=== PATIENT | male | born 1985 | race Caucasian/White ===

== ENCOUNTER → 2018-10-01 | Outpatient (CLI) | payer OTHER ==
[2018-10-01 10:45] LABS: Basophils # (A) 0.1 k/uL (0-0.2); Basophils % (A) 1 %; Eosinophils # (A) 0.3 k/uL (0-0.7); Eosinophils % (A) 3 %; HCT 44.8 % (39.0-53.0); HGB 15.6 gm/dL (13.0-17.5); Lymphocytes # (A) 1.7 k/uL (1.0-4.8); Lymphocytes % (A) 20 %; MCH 31.7 pg (25.0-35.0); MCHC 34.9 g/dL (31.0-37.0); Mean Platelet Volume 7.4; Monocytes # (A) 0.6 k/uL (0-1.0); Monocytes % (A) 7 %; Neutrophils # (A) 5.7 k/uL (1.3-7.7); Neutrophils % (A) 68 %; Platelet Count 220 k/uL (150-450); RBC 4.93 m/uL (4.30-5.90); RDW 12.6 % (11.5-15.5); WBC 8.4 k/uL (3.8-10.6)
[2018-10-01 12:28] LABS: Erythrocyte Sedimentation Rate 2 mm/hr (0-15)
--- NOTE | 2018-10-01 13:03 | XR ---
Right shoulder HISTORY: Juvenile rheumatoid arthritis 3 views of the right shoulder Bone mineralization, joint spaces and alignment are maintained. No fracture or dislocation. Right flaquita g apex as visualized. IMPRESSION: Normal right shoulder.
--- NOTE | 2018-10-01 13:05 | XR ---
Bilateral hands HISTORY: Juvenile rheumatoid arthritis 3 views of each hand submitted on a total of 6 images No comparisons Bone mineralization, joint spaces and alignment are maintained. No fracture or dislocation. IMPRESSION: Significant arthropathy is not evident.
--- NOTE | 2018-10-01 13:06 | XR ---
Sacrum and coccyx HISTORY: Juvenile Rheumatoid arthritis 3 views of the sacrum and coccyx Bone mineralization, joint spaces and alignment are maintained. No fracture or dislocation. Metallic densities scattered within the abdomen may be related to bowel content, radiopaque medication. IMPRESSION: No significant arthropathy evident. Additional findings above.
--- NOTE | 2018-10-01 13:09 | XR ---
Lumbar spine HISTORY: Juvenile Rheumatoid arthritis 3 views of the lumbar spine Lumbar vertebral bodies show preserved height, alignment, and bone mineralization. Scattered punctate metallic densities are noted within the abdomen likely represent bowel content. Disc spaces are main tained. Sclerosis present in the posterior elements of the lower lumbar spine may be due to facet art hropathy. Mild multilevel spondylosis. IMPRESSION: Mild lumbar spondylosis, possible facet arthropathy. Additional findings above. Lumbar MR I may be of benefit.
[2018-10-01 16:24] LABS: Albumin 4.6 g/dL (3.80-4.90); Albumin/Globulin Ratio 2.88 (1.20-2.10); Anion Gap 2.6 mmol/L (4.00-12.00); Calcium 9.1 mg/dL (8.7-10.3); Carbon Dioxide 24.4 mmol/L (21.6-31.8); Globulin 1.6 g/dL (2.1-3.7); Potassium 4.2 mmol/L (3.5-5.5); Total Bilirubin 0.4 mg/dL (0.2-1.2); Total Protein 6.2 g/dL (6.2-8.2)
== END | disposition home or self-care (01) ==
LOC: LABWHC1 09:39
PROVIDERS: ATTEND Internal Medicine
DX: M08.00 Unspecified juvenile rheumatoid arthritis of unspecified site (principal)
CPT/HCPCS: 36415; 72100; 72220; 80053; 85025; 85652

== ENCOUNTER 2018-10-15 13:22 | Emergency (ER) | payer OTHER ==
[2018-10-15 13:27] VITALS: RESP 16
--- NOTE | 2018-10-15 14:29 | XR ---
EXAMINATION TYPE: XR knee complete LT DATE OF EXAM: 10/15/2018 COMPARISON: NONE HISTORY: 33-year-old male twisting type injury to left knee, pain TECHNIQUE: 3 views FINDINGS: No significant knee joint effusion. No acute fracture, subluxation, or dislocation seen. Extensor mec hanism appears intact. IMPRESSION: No acute osseous abnormality seen.
[2018-10-15] MEDS ORDERED: ACETAMINOPHEN TAB 325 MG TAB PO STA (14:32)
--- NOTE | 2018-10-15 14:36 | ED ---
Lower Extremity Injury HPI - General Chief Complaint: Extremity Injury, Lower Stated Complaint: Knee injury Time Seen by Provider: 10/15/18 14:19 Source: patient Mode of arrival: ambulatory Limitations: no limitations - History of Present Illness Initial Comments: 33yo male who denies significant PMH presenting today for cc of left knee pain. pt states that yesterday evening he was moving a washing machine around 8pm when he turned with the machine and twisted his left knee. He states he did not dislocate the knee but noticed pain. He denies fall or injury to any other extremity or head. Pt states that he is able to weight bear following the injury but felt like his knee could give out. Pt was concerned of injury and presented for evaluation, pt denies any numbness, tingling, loss of sensation, pallor/cooler of extremity. Upon arrival pt is ambulatory, he appears well. No signs of acute distress. Pt denies taking medication prior to arrival. Remainder of ROS (-), pt denies chest pain, dypnea, abdominal pain, nausea, vomiting, urgency, frequency, fever, chills, headache, dizziness or any other recent symptoms. BP elevated upon arrival. - Related Data Home Medications Medication Instructions Recorded Confirmed ALPRAZolam [Xanax] 1 mg PO BID PRN 04/20/15 10/15/18 Ibuprofen [Motrin] 800 mg PO BID 04/20/15 10/15/18 Allergies Allergy/AdvReac Type Severity Reaction Status Date / Time latex Allergy Rash/Hives Verified 10/15/18 13:27 Review of Systems ROS Statement: Those systems with pertinent positive or pertinent negative responses have been documented in the HPI. ROS Other: All systems not noted in ROS Statement are negative. Past Medical History Past Medical History: Memory Impairment, Rheumatoid Arthritis (RA), Seizure Disorder Additional Past Medical History / Comment(s): KIDNEY STONES, UTI, ULCERS History of Any Multi-Drug Resistant Organisms: None Reported Additional Past Surgical History / Comment(s): left shoulder, right wrist Past Anesthesia/Blood Transfusion Reactions: No Reported Reaction Past Psychological History: Anxiety, Depression Smoking Status: Current every day smoker Past Alcohol Use History: None Reported Past Drug Use History: Heroin - Past Family History Mother Family Medical History: Hypertension, Myocardial Infarction ([place]) Additional Family Medical History / Comment(s): MS Father History Unknown: Yes General Exam - General Exam Comments Initial Comments: General: The patient is awake and alert, in no distress, and does not appear acutely ill. Eye: Pupils are equal, round and reactive to light, extra-ocular movements are intact. No nystagmus. There is normal conjunctiva bilaterally. No signs of icterus. Ears, nose, mouth and throat: There are moist mucous membranes and no oral lesions. Neck: The neck is supple, there is no tenderness or JVD. Cardiovascular: There is a regular rate and rhythm. No murmur, rub or gallop is appreciated. Respiratory: Lungs are clear to auscultation, respirations are non-labored, breath sounds are equal. No wheezes, stridor, rales, or rhonchi.] Musculoskeletal: Inspection of the left knee reveals swelling along the lateral aspect-mild, no ecchymosis. No obvious defect. Extensor mechanism intact , No bogginess of the quadracepts tendon. Pt is able to flex and extend at the knee b/l. Pt does admit to discomfort with ROM of the left knee-this does not appear out of proportion. Pt is tender to palpation of the lateral aspect and posterior aspect of the knee. No noted masses or obvious effusions. Strength 5/ 5. Sensation intact of the LE equally b/l. DP pulses equal bilaterally 2+. Capillary refill < 2 seconds. No noted laxity on exam. Neurological: A&O x 3. CN II-XII intact, There are no obvious motor or sensory deficits. Coordination appears grossly intact. Speech is normal. Skin: Skin is warm and dry and no rashes or lesions are noted. Psychiatric: Cooperative, appropriate mood & affect, normal judgment. Limitations: no limitations Course Vital Signs 10/15/18 10/15/18 13:25 15:33 Temperature 97.9 F 98.1 F Pulse Rate 83 81 Respiratory 16 16 Rate Blood Pressure 167/97 158/90 O2 Sat by Pulse 99 99 Oximetry Medical Decision Making - Medical Decision Making Pt given pain mgmt. PE and history concerning for ligamentous injury. Extensor mechanisms intact. Pt neurovascularly intact. XR (-) for fracture or dislocation. Pt placed in knee immobilizer, pt states he has crutches at home. At this time i feel pt is stable for discharge with orthopedic surgery followup in next 1-2 days for evaluation for possible ligamentous injury. Pt is agreeable with plan. Pt given CRISTINA instruction as well as instruction to take ibuprofen and tylenol for pain mgmt at home. Case discussed with Dr. Martinez who agreed with impression and plan. Pt discharged in stable condition after discussing all return parameters, pt verbalized understanding. Pt BP elevated upon discharge, pt aware. Recommended primary f/u in next 1-2 days for further management/evaluation. ROS (-). Disposition Clinical Impression: Left knee injury, Left knee pain Disposition: HOME SELF-CARE Condition: Good Instructions: Knee Sprain (ED), Knee Pain (ED) Additional Instructions: Please use over the counter pain medication as discussed. Please follow-up with orthopedic surgery in the next 1-2 days, for evaluation for possible ligamentous injury. Please keep knee immobilizer on when walking/moving. Please return to emergency room if new symptoms develop there is an increase or worsen of symptoms or for any other concerns. Is patient prescribed a controlled substance at d/c from ED?: No Referrals: Maximo Lima DO [Primary Care Provider] - 1-2 days Javi Bermudez MD [STAFF PHYSICIAN] - 1-2 days Time of Disposition: 15:17
[2018-10-15] MEDS ORDERED: MORPHINE SULFATE 2 MG/ML SYRINGE IM STA (14:46)
[2018-10-15 15:34] VITALS: BP 158/90; PULSE 81; TEMP 98.1
== END 2018-10-15 15:33 | disposition home or self-care (01) ==
LOC: EC 13:22
DX: S89.92XA Unspecified injury of left lower leg, initial encounter (principal); F41.9 Anxiety disorder, unspecified; F32.9 Major depressive disorder, single episode, unspecified; F17.200 Nicotine dependence, unspecified, uncomplicated; Z79.899 Other long term (current) drug therapy; Z91.040 Latex allergy status; X50.1XXA Overexertion from prolonged static or awkward postures, initial encounter; Y92.009 Unspecified place in unspecified non-institutional (private) residence as the place of occurrence of the external cause
CPT/HCPCS: 73562; 99283; 96372; L1830; J2270

== ENCOUNTER → 2018-11-30 | Outpatient (CLI) | payer OTHER ==
--- NOTE | 2018-11-30 09:24 | CT ---
EXAMINATION TYPE: CT abdomen pelvis wo con DATE OF EXAM: 11/30/2018 COMPARISON: June 29, 2011 HISTORY: Left flank and LLQ pain with hematuria CT DLP: 1053 mGycm Examination of the solid and hollow viscera is limited given the lack of contrast. FINDINGS: LUNG BASES: No evidence for nodule. No evidence for infiltrate. LIVER/GB: The gallbladder is unremarkable. No space-occupying hepatic lesion. PANCREAS: No pancreatic mass identified. No inflammatory process seen. SPLEEN: No evidence for splenomegaly. No intrasplenic lesions seen. ADRENALS: No adrenal nodules identified. No evidence for thickening. KIDNEYS: No evidence for renal mass. Nonobstructing calculi upper pole right kidney measuring up to 3 mm. No evidence for left-sided nephrolithiasis. No hydronephrosis. BOWEL: Appendix has a normal appearance. No evidence of bowel obstruction. No inflammatory process. Lymph nodes: No evidence for adenopathy greater than 1 cm. Abdominal aorta: Atheromatous changes seen. No evidence for aneurysm. Genital organs: No significant abnormality. Other: No significant abnormality. IMPRESSION: 1. Nonobstructing right-sided nephrolithiasis.
== END | disposition home or self-care (01) ==
LOC: RADCTMAIN 07:48
PROVIDERS: ATTEND Family Medicine
DX: N20.0 Calculus of kidney (principal)
CPT/HCPCS: 74176

== ENCOUNTER → 2019-01-07 | Outpatient (CLI) | payer OTHER ==
[2019-01-07 13:00] LABS: Prothrombin Time 10.3 sec (9.0-12.0)
[2019-01-07 18:41] LABS: Albumin 4.4 g/dL (3.80-4.90); Albumin/Globulin Ratio 2.44 (1.60-3.17); Bilirubin, Conjugated 0.3 mg/dL (0.20-0.40); Bilirubin,Unconjugated 0.5 mg/dL; Globulin 1.8 g/dL (1.6-3.3); Total Bilirubin 0.8 mg/dL (0.2-1.2); Total Protein 6.2 g/dL (6.2-8.2)
[2019-01-09 15:04] LABS: HCV Quant Log 5.78 (<1.08)
== END | disposition home or self-care (01) ==
LOC: LABWHC1 11:57
PROVIDERS: ATTEND Physician Assistant
DX: B18.2 Chronic viral hepatitis C (principal)
CPT/HCPCS: 36415; 80076; 85610; 87522

== ENCOUNTER 2019-04-16 13:14 | Emergency (ER) | payer OTHER ==
[2019-04-16 13:21] VITALS: TEMP 97.6
[2019-04-16] MEDS ORDERED: KETOROLAC 30 MG/ML 1 ML VIAL IVP STA (13:31)
[2019-04-16] MEDS ORDERED: SODIUM CHLORIDE 0.9% 1,000 ML IV STA (13:32)
--- NOTE | 2019-04-16 13:54 | ED ---
Abdominal Pain HPI - General Chief Complaint: Abdominal Pain Stated Complaint: Flank Pain Time Seen by Provider: 04/16/19 13:30 Source: patient, EMS Mode of arrival: EMS Limitations: no limitations - History of Present Illness Initial Comments: Patient is a 33-year-old male presenting to the emergency department via EMS with complaints of severe right-sided abdominal/flank pain 40 minutes. Patient admits to history of kidney stones and this feels similar. Patient states pain started suddenly and has been very severe. Patient is hollering out in pain and sweating at time of arrival. Patient denies any other complaints at this time. Patient denies fever, chills, nausea, vomiting, diarrhea. - Related Data Home Medications Medication Instructions Recorded Confirmed Ibuprofen [Motrin] 800 mg PO TID PRN 04/20/15 04/16/19 Previous Rx's Medication Instructions Recorded HYDROcodone/APAP 7.5-325MG [[place] 1 tab PO Q6HR PRN 3 Days #12 tab 04/16/19 7.5-325] Ketorolac [Toradol] 10 mg PO Q8HR #15 tab 04/16/19 Ondansetron Odt [Zofran Odt] 4 mg PO Q8HR PRN #10 tab 04/16/19 Tamsulosin [Flomax] 0.4 mg PO DAILY #7 cap 04/16/19 Allergies Allergy/AdvReac Type Severity Reaction Status Date / Time latex Allergy Rash/Hives Verified 04/16/19 13:51 Review of Systems ROS Statement: Those systems with pertinent positive or pertinent negative responses have been documented in the HPI. ROS Other: All systems not noted in ROS Statement are negative. Past Medical History Past Medical History: Memory Impairment, Rheumatoid Arthritis (RA), Seizure Disorder Additional Past Medical History / Comment(s): KIDNEY STONES, UTI, ULCERS History of Any Multi-Drug Resistant Organisms: None Reported Additional Past Surgical History / Comment(s): left shoulder, right wrist Past Anesthesia/Blood Transfusion Reactions: No Reported Reaction Past Psychological History: Anxiety, Depression Smoking Status: Current every day smoker Past Alcohol Use History: None Reported Past Drug Use History: Heroin, Marijuana - Past Family History Mother Family Medical History: Hypertension, Myocardial Infarction ([place]) Additional Family Medical History / Comment(s): MS Father History Unknown: Yes General Exam - General Exam Comments Initial Comments: GENERAL: Patient is hollering in pain, diaphoretic. HEAD: Atraumatic, normocephalic. EYES: Pupils equal round and reactive to light, extraocular movements intact, sclera anicteric, conjunctiva are normal. ENT: TMs normal, nares patent, oropharynx clear without exudates. Moist mucous membranes. NECK: Normal range of motion, supple without lymphadenopathy or JVD. LUNGS: Breath sounds clear to auscultation bilaterally and equal. No wheezes rales or rhonchi. HEART: Regular rate and rhythm without murmurs, rubs or gallops. ABDOMEN: Soft, nontender, normoactive bowel sounds. No guarding, no rebound. No masses appreciated. Bilateral CVA tenderness, right greater than left. EXTREMITIES: Normal range of motion, no pitting or edema. No clubbing or cyanosis. NEUROLOGICAL: Cranial nerves II through XII grossly intact. Normal speech, normal gait. PSYCH: Normal mood, normal affect. SKIN: Warm, normal turgor, no rashes or lesions noted. Limitations: no limitations Course Vital Signs 04/16/19 04/16/19 04/16/19 13:16 16:00 17:43 Temperature 97.6 F 97.6 F Pulse Rate 62 55 L 65 Respiratory 20 18 18 Rate Blood Pressure 191/105 161/91 137/80 O2 Sat by Pulse 100 100 99 Oximetry Medical Decision Making - Medical Decision Making Patient is a 33-year-old male presenting to the ER via EMS for severe right- sided CVA tenderness 40 minutes. Patient admits to history of kidney stones and this feels similar. Patient is hollering in pain and diaphoretic on arrival. Exam reveals right CVA tenderness and mild left-sided tenderness as well. CBC shows mild leukocytosis with WBC of 15, likely reactive. CMP is within normal limits. UA shows no signs of infection and moderate amount of blood. Abdominal CT shows cacli in both kidneys. There is a distal right ureteral calculus measuring 2 mm with associated right-sided hydronephrosis and hydroureter. Patient was given Toradol and Dilaudid with improvement in pain. Patient will be discharged home with pain medication, Flomax, Zofran. Patient is okay with this plan. Case was discussed with Dr. Martinez. - Lab Data Result diagrams: 04/16/19 13:50 04/16/19 13:50 Lab Results 04/16/19 04/16/19 04/16/19 Range/Units 13:50 13:50 13:50 WBC 15.2 H (3.8-10.6) k/uL RBC 4.94 (4.30-5.90) m/uL Hgb 14.8 (13.0-17.5) gm/dL Hct 44.6 (39.0-53.0) % MCV 90.4 (80.0-100.0) fL MCH 29.9 (25.0-35.0) pg MCHC 33.1 (31.0-37.0) g/dL RDW 13.7 (11.5-15.5) % Plt Count 230 (150-450) k/uL Neutrophils % 85 % Lymphocytes % 9 % Monocytes % 4 % Eosinophils % 1 % Basophils % 1 % Neutrophils # 12.8 H (1.3-7.7) k/uL Lymphocytes # 1.4 (1.0-4.8) k/uL Monocytes # 0.6 (0-1.0) k/uL Eosinophils # 0.1 (0-0.7) k/uL Basophils # 0.1 (0-0.2) k/uL Sodium 141 (137-145) mmol/L Potassium 3.7 (3.5-5.1) mmol/L Chloride 109 H (98-107) mmol/L Carbon Dioxide 21 L (22-30) mmol/L Anion Gap 11 mmol/L BUN 12 (9-20) mg/dL Creatinine 0.69 (0.66-1.25) mg/dL Est GFR (CKD-EPI)AfAm >90 (>60 ml/min/1.73 sqM) Est GFR (CKD-EPI)NonAf >90 (>60 ml/min/1.73 sqM) Glucose 136 H (74-99) mg/dL Calcium 9.5 (8.4-10.2) mg/dL Total Bilirubin 1.0 (0.2-1.3) mg/dL AST 54 (17-59) U/L ALT 44 (21-72) U/L Alkaline Phosphatase 76 (38-126) U/L Total Protein 7.0 (6.3-8.2) g/dL Albumin 4.5 (3.5-5.0) g/dL Urine Color Yellow Urine Appearance Clear (Clear) Urine pH 6.5 (5.0-8.0) Ur Specific [place] 1.018 (1.001-1.035) Urine Protein Trace H (Negative) Urine Glucose (UA) Negative (Negative) Urine Ketones 2+ H (Negative) Urine Blood Moderate H (Negative) Urine Nitrite Negative (Negative) Urine Bilirubin Negative (Negative) Urine Urobilinogen <2.0 (<2.0) mg/dL Ur Leukocyte Esterase Negative (Negative) Urine RBC >182 H (0-5) /hpf Urine WBC 3 (0-5) /hpf Ur Squamous Epith Cells <1 (0-4) /hpf Urine Mucus Few H (None) /hpf Disposition Clinical Impression: Right ureteral stone, Right flank pain Disposition: HOME SELF-CARE Condition: Stable Instructions (If sedation given, give patient instructions): Kidney Stones (ED) Additional Instructions: Please return to the Emergency Department if symptoms worsen or any other concerns. Follow-up with PCP if symptoms continue. Prescriptions: Tamsulosin [Flomax] 0.4 mg PO DAILY #7 cap HYDROcodone/APAP 7.5-325MG [[place] 7.5-325] 1 tab PO Q6HR PRN 3 Days #12 tab PRN Reason: Pain Ketorolac [Toradol] 10 mg PO Q8HR #15 tab Ondansetron Odt [Zofran Odt] 4 mg PO Q8HR PRN #10 tab PRN Reason: Nausea Is patient prescribed a controlled substance at d/c from ED?: Yes When asked, does pt state using other controlled substances?: No If prescribed controlled substance>3 days was MAPS reviewed?: Prescribed <3 Days If opioid is for acute pain is fill amount 7 days or less?: Yes If Rx opioid, was Start Talking consent form obtained?: Yes Referrals: Maximo Lima DO [Primary Care Provider] - 1-2 days
[2019-04-16] MEDS ORDERED: HYDROmorphone 1 MG/ML 1 ML SYRINGE IVP STA ×2 (13:59→16:20)
[2019-04-16 14:13] LABS: ALT 44 U/L (21-72); AST 54 U/L (17-59); African American GFR (CKD) >90 (>60 ml/min/1.73 sqM); Albumin 4.5 g/dL (3.5-5.0); Alkaline Phosphatase 76 U/L (38-126); Anion Gap 11 mmol/L; Blood Urea Nitrogen 12 mg/dL (9-20); Calcium 9.5 mg/dL (8.4-10.2); Carbon Dioxide 21 mmol/L (22-30); Chloride 109 mmol/L (98-107); Glucose 136 mg/dL (74-99); Sodium 141 mmol/L (137-145)
[2019-04-16 14:18] LABS: Basophils # (A) 0.1 k/uL (0-0.2); Basophils % (A) 1 %; Eosinophils # (A) 0.1 k/uL (0-0.7); Eosinophils % (A) 1 %; HCT 44.6 % (39.0-53.0); HGB 14.8 gm/dL (13.0-17.5); Lymphocytes # (A) 1.4 k/uL (1.0-4.8); Lymphocytes % (A) 9 %; MCH 29.9 pg (25.0-35.0); MCHC 33.1 g/dL (31.0-37.0); MCV 90.4 fL (80.0-100.0); Mean Platelet Volume 8.1; Monocytes # (A) 0.6 k/uL (0-1.0); Monocytes % (A) 4 %; Neutrophils # (A) 12.8 k/uL (1.3-7.7); Neutrophils % (A) 85 %; Platelet Count 230 k/uL (150-450); RBC 4.94 m/uL (4.30-5.90); RDW 13.7 % (11.5-15.5); WBC 15.2 k/uL (3.8-10.6)
[2019-04-16 14:19] LABS: Potassium 3.7 mmol/L (3.5-5.1)
--- NOTE | 2019-04-16 14:23 | CT ---
EXAMINATION TYPE: CT abdomen pelvis wo con DATE OF EXAM: 04/16/2019 COMPARISON: Prior CT 11/30/2018 HISTORY: Right flank pain. CT DLP: 1483.6 mGycm Automated exposure control for dose reduction was used. TECHNIQUE: Helical acquisition of images from the lung bases through the pelvis. FINDINGS: LUNG BASES: No significant abnormality is appreciated. AORTA: No significant abnormality is appreciated. LIVER/GB: The liver is enlarged, gallbladder shows no stone. PANCREAS: No significant abnormality is seen. SPLEEN: No significant abnormality is seen. ADRENALS: No significant abnormality is seen. KIDNEYS: Punctate nonobstructive calculi are present within both kidneys, at least 4-5 calcifications on the right and on the left. There is right-sided hydronephrosis and hydroureter. Distal right uret eral calculus is present measuring only approximately 2 mm in size. REPRODUCTIVE ORGANS: No significant abnormality is seen. URINARY BLADDER: No significant abnormality is seen. BOWEL: No significant abnormality is seen. The appendix is normal. There is some luminal high attenu ation however the appendix is not thickened and shows no periappendiceal inflammatory change. Some di verticular change noted in the sigmoid colon and descending colon, transverse colon FREE AIR: No Beltran e Air is visible. ASCITES: None visible. PELVIC ADENOPATHY: None visualized. RETROPERITONEAL ADENOPATHY: No Retroperitoneal Adenopathy visible. OSSEOUS STRUCTURES: No significant abnormality is seen. IMPRESSION: OBSTRUCTIVE DISTAL RIGHT URETERAL CALCULUS. BILATERAL NEPHROLITHIASIS. NONCONTRAST EXAM COULD LIMIT S ENSITIVITY. DIVERTICULOSIS AND ADDITIONAL FINDINGS ABOVE.
[2019-04-16 14:36] LABS: Appearance,Urine Clear (Clear); Bilirubin,Urine Negative (Negative); Blood,Urine Moderate (Negative); Color,Urine Yellow; Glucose,Urine (UA) Negative (Negative); Ketones,Urine 2+ (Negative); Leukocyte Esterase,Urine Negative (Negative); Mucus,Urine Few /hpf; Nitrite,Urine Negative (Negative); PH, Urine 6.5 (5.0-8.0); Protein,Urine Trace (Negative); RBC,Urine >182 /hpf (0-5); Specific Gravity,Urine 1.018 (1.001-1.035); Squamous Epithelial Cell,Urine <1 /hpf (0-4); Urobilinogen,Urine <2.0 mg/dL (<2.0)
[2019-04-16] MEDS ORDERED: TAMSULOSIN 0.4 MG CAP.ER.24H PO STA (14:37)
--- NOTE | 2019-04-16 15:50 | XR ---
EXAMINATION TYPE: XR KUB DATE OF EXAM: 04/16/2019 COMPARISON: NONE HISTORY: Right flank pain TECHNIQUE: One view abdominal series FINDINGS: The osseous structures are intact. The bowel gas pattern is nonspecific. No suspicious calcification s. Hypertrophic change of the acetabulum may predispose the patient to femoral acetabular impingement . IMPRESSION: 1. Nonspecific abdomen.
[2019-04-16 16:02] VITALS: RESP 18
[2019-04-16 17:48] VITALS: BP 137/80; PULSE 65
== END 2019-04-16 17:48 | disposition home or self-care (01) ==
LOC: EC 13:14
DX: N13.2 Hydronephrosis with renal and ureteral calculous obstruction (principal); D72.829 Elevated white blood cell count, unspecified; R61 Generalized hyperhidrosis; F17.200 Nicotine dependence, unspecified, uncomplicated; Z91.040 Latex allergy status
CPT/HCPCS: 36415; 80053; 85025; 81001; 74018; 74176; 99285; 96374; 96375; 96376; 96361 ×2; J1885; J1170

== ENCOUNTER → 2019-06-13 | Outpatient (CLI) | payer OTHER ==
--- NOTE | 2019-06-13 17:54 | ECHOF ---
Referral Reason:R94.31 Abnormal EKG MEASUREMENTS -------- HEIGHT: 165.1 cm WEIGHT: 93.0 kg BP: 132/72 IVSd: 1.1 cm (0.6 - 1.1) LVIDd: 5.2 cm (3.9 - 5.3) LVPWd: 1.0 cm (0.6 - 1.1) IVSs: 1.6 cm LVIDs: 3.2 cm LVPWs: 1.5 cm LA Diam: 3.3 cm (2.7 - 3.8) RVIDd: 3.0 cm (< 3.3) LAESV Index (A-L): 24.32 ml/m Ao Diam: 3.3 cm (2.0 - 3.7) AV Cusp: 2.6 cm (1.5 - 2.6) EPSS: 0.3 cm MV E Kenny: 0.82 m/s MV DecT: 276 ms MV A Kenny: 0.80 m/s MV E/A Ratio: 1.03 MV EF SLOPE: 99.50 mm/s (70 - 150) MV EXCURSION: 18.52 mm (> 18.000) FINDINGS -------- Sinus rhythm. This was a technically good study. The left ventricular size is normal. Left ventricular wall thickness is normal. Overall left vent ricular systolic function is normal with, an EF between 60 - 65 %. The right ventricle is normal in size. Normal LA size by volume 22+/-6 ml/m2. The right atrium is normal in size. Interatrial and interventricular septum intact. The aortic valve is trileaflet and appears structurally normal. The mitral valve leaflets are mildly thickened. The tricuspid valve appears structurally normal. Trace/mild (physiologic) pulmonic regurgitation. The aortic root size is normal. Normal inferior vena cava with normal inspiratory collapse consistent with estimated right atrial pre ssure of 5 mmHg. There is no pericardial effusion. CONCLUSIONS -------- 1. Sinus rhythm. 2. This was a technically good study. 3. The left ventricular size is normal. 4. Left ventricular wall thickness is normal. 5. Overall left ventricular systolic function is normal with, an EF between 60 - 65 %. 6. The right ventricle is normal in size. 7. Normal LA size by volume 22+/-6 ml/m2. 8. The right atrium is normal in size. 9. Interatrial and interventricular septum intact. 10. The aortic valve is trileaflet and appears structurally normal. 11. The mitral valve leaflets are mildly thickened. 12. The tricuspid valve appears structurally normal. 13. Trace/mild (physiologic) pulmonic regurgitation. 14. The aortic root size is normal. 15. Normal inferior vena cava with normal inspiratory collapse consistent with estimated right atrial pressure of 5 mmHg. 16. There is no pericardial effusion. MANAGER ENGLISH: Tabitha Mcneal RDCS
== END | disposition home or self-care (01) ==
LOC: RADECHMAIN 11:15
PROVIDERS: ATTEND Family Medicine
DX: I37.1 Nonrheumatic pulmonary valve insufficiency (principal)
CPT/HCPCS: 93306

== ENCOUNTER 2019-07-18 02:55 | Emergency (ER) | payer OTHER ==
[2019-07-18] MEDS ORDERED: SODIUM CHLORIDE 0.9% 1,000 ML IV STA (03:26)
[2019-07-18] MEDS ORDERED: HYDROmorphone 0.5 MG/0.5 ML SYRINGE IVP STA (03:26)
[2019-07-18] MEDS ORDERED: KETOROLAC 30 MG/ML 1 ML VIAL IVP STA (03:26)
[2019-07-18] MEDS ORDERED: ONDANSETRON 4 MG/2 ML VIAL IVP STA (03:26)
[2019-07-18 03:39] LABS: Basophils # (A) 0.1 k/uL (0-0.2); Basophils % (A) 1 %; Eosinophils # (A) 0.4 k/uL (0-0.7); Eosinophils % (A) 4 %; HCT 44.4 % (39.0-53.0); HGB 14.7 gm/dL (13.0-17.5); Lymphocytes # (A) 2.4 k/uL (1.0-4.8); Lymphocytes % (A) 24 %; MCH 30.1 pg (25.0-35.0); MCHC 33.2 g/dL (31.0-37.0); MCV 90.7 fL (80.0-100.0); Mean Platelet Volume 7.6; Monocytes # (A) 0.6 k/uL (0-1.0); Monocytes % (A) 6 %; Neutrophils # (A) 6.4 k/uL (1.3-7.7); Neutrophils % (A) 62 %; Platelet Count 224 k/uL (150-450); RBC 4.89 m/uL (4.30-5.90); RDW 12.6 % (11.5-15.5); WBC 10.2 k/uL (3.8-10.6)
--- NOTE | 2019-07-18 03:43 | XR ---
EXAMINATION TYPE: XR KUB DATE OF EXAM: 07/18/2019 COMPARISON: 04/16/2019 HISTORY: Abdominal pain TECHNIQUE: 2 views upright FINDINGS: There is no sign of intestinal obstruction or pneumoperitoneum. Fecal pattern is normal. Th ere are no pathologic calcifications over the right kidney. There is possible 2 mm calculus over the left kidney. IMPRESSION: Nonacute abdomen. No adverse change.
--- NOTE | 2019-07-18 03:44 | ED ---
Abdominal Pain HPI - General Chief Complaint: Abdominal Pain Stated Complaint: Abdominal Pain Time Seen by Provider: 07/18/19 03:07 Source: patient, EMS Mode of arrival: EMS Limitations: no limitations - History of Present Illness Initial Comments: 34 year-old male patient presents to the emergency department today for evaluation of left sided abdominal pain. Patient states he is having a sharp, stabbing, burning pain to the left flank radiating into the left lower quadrant abdomen. Patient states this started approximately one hour ago. Patient s tates he did have similar symptoms in the past and had a kidney stone on the right side. Patient states he has been nauseated and did vomit one time. Denies any fevers or chills with this. States he has noticed blood in his urine. Denies any constipation or diarrhea. Denies history of abdominal surgery. He is not currently taking any medications. Patient denies any recent rash, shortness breath, chest pain, diarrhea, constipation, back pain, numbness, tingling, dizziness, weakness, headache, visual changes, or any other complaints. - Related Data Home Medications Medication Instructions Recorded Confirmed Ibuprofen [Motrin] 800 mg PO TID PRN 04/20/15 04/16/19 Previous Rx's Medication Instructions Recorded HYDROcodone/APAP 7.5-325MG [[place] 1 tab PO Q6HR PRN 3 Days #12 tab 04/16/19 7.5-325] Ketorolac [Toradol] 10 mg PO Q8HR #15 tab 04/16/19 Ondansetron Odt [Zofran Odt] 4 mg PO Q8HR PRN #10 tab 04/16/19 Tamsulosin [Flomax] 0.4 mg PO DAILY #7 cap 04/16/19 Ibuprofen [Motrin] 600 mg PO Q8HR PRN #30 tab 07/18/19 Ondansetron [Zofran ODT] 4 mg PO Q8HR PRN #20 tab 07/18/19 Tamsulosin HCl [Flomax] 0.4 mg PO DAILY #7 cap 07/18/19 Allergies Allergy/AdvReac Type Severity Reaction Status Date / Time latex Allergy Rash/Hives Verified 07/18/19 03:09 Review of Systems ROS Statement: Those systems with pertinent positive or pertinent negative responses have been documented in the HPI. ROS Other: All systems not noted in ROS Statement are negative. Past Medical History Past Medical History: Memory Impairment, Rheumatoid Arthritis (RA), Seizure Disorder Additional Past Medical History / Comment(s): KIDNEY STONES, UTI, ULCERS History of Any Multi-Drug Resistant Organisms: None Reported Additional Past Surgical History / Comment(s): left shoulder, right wrist Past Anesthesia/Blood Transfusion Reactions: No Reported Reaction Past Psychological History: Anxiety, Depression Smoking Status: Current every day smoker Past Alcohol Use History: None Reported Past Drug Use History: Heroin, Marijuana - Past Family History Mother Family Medical History: Hypertension, Myocardial Infarction ([place]) Additional Family Medical History / Comment(s): MS Father History Unknown: Yes General Exam Limitations: no limitations General appearance: alert, in no apparent distress, other (This is a well- developed, well-nourished adult male patient in no acute distress. Vital signs upon presentation are temperature 97.0F, pulse 60, respirations 18, blood pressure 153/110, pulse ox 99% on room air.) Eye exam: Present: normal appearance, PERRL, EOMI. Absent: scleral icterus, conjunctival injection, periorbital swelling ENT exam: Present: normal exam, normal oropharynx, mucous membranes moist Respiratory exam: Present: normal lung sounds bilaterally. Absent: respiratory distress, wheezes, rales, rhonchi, stridor Cardiovascular Exam: Present: regular rate, normal rhythm, normal heart sounds. Absent: systolic murmur, diastolic murmur, rubs, gallop, clicks GI/Abdominal exam: Present: soft, tenderness (Left lower quadrant tenderness), normal bowel sounds. Absent: distended, guarding, rebound, rigid Neurological exam: Present: alert, oriented X3, CN II-XII intact Psychiatric exam: Present: normal affect, normal mood Skin exam: Present: warm, dry, intact, normal color. Absent: rash Course Vital Signs 07/18/19 07/18/19 03:06 03:15 Temperature 97 F L Pulse Rate 60 Respiratory 18 Rate Blood Pressure 153/110 158/95 O2 Sat by Pulse 99 Oximetry Medical Decision Making - Lab Data Result diagrams: 07/18/19 03:10 07/18/19 03:10 Lab Results 07/18/19 07/18/19 07/18/19 Range/Units 03:10 03:10 03:10 WBC 10.2 (3.8-10.6) k/uL RBC 4.89 (4.30-5.90) m/uL Hgb 14.7 (13.0-17.5) gm/dL Hct 44.4 (39.0-53.0) % MCV 90.7 (80.0-100.0) fL MCH 30.1 (25.0-35.0) pg MCHC 33.2 (31.0-37.0) g/dL RDW 12.6 (11.5-15.5) % Plt Count 224 (150-450) k/uL Neutrophils % 62 % Lymphocytes % 24 % Monocytes % 6 % Eosinophils % 4 % Basophils % 1 % Neutrophils # 6.4 (1.3-7.7) k/uL Lymphocytes # 2.4 (1.0-4.8) k/uL Monocytes # 0.6 (0-1.0) k/uL Eosinophils # 0.4 (0-0.7) k/uL Basophils # 0.1 (0-0.2) k/uL Sodium 141 (137-145) mmol/L Potassium 3.7 (3.5-5.1) mmol/L Chloride 108 H (98-107) mmol/L Carbon Dioxide 25 (22-30) mmol/L Anion Gap 8 mmol/L BUN 13 (9-20) mg/dL Creatinine 0.63 L (0.66-1.25) mg/dL Est GFR (CKD-EPI)AfAm >90 (>60 ml/min/1.73 sqM) Est GFR (CKD-EPI)NonAf >90 (>60 ml/min/1.73 sqM) Glucose 108 H (74-99) mg/dL Calcium 8.9 (8.4-10.2) mg/dL Total Bilirubin 0.4 (0.2-1.3) mg/dL AST 34 (17-59) U/L ALT 34 (21-72) U/L Alkaline Phosphatase 88 (38-126) U/L Total Protein 6.6 (6.3-8.2) g/dL Albumin 4.1 (3.5-5.0) g/dL Amylase 86 (30-110) U/L Lipase 278 (23-300) U/L Urine Color Yellow Urine Appearance Clear (Clear) Urine pH 7.0 (5.0-8.0) Ur Specific [place] 1.015 (1.001-1.035) Urine Protein Negative (Negative) Urine Glucose (UA) Negative (Negative) Urine Ketones Negative (Negative) Urine Blood Large H (Negative) Urine Nitrite Negative (Negative) Urine Bilirubin Negative (Negative) Urine Urobilinogen <2.0 (<2.0) mg/dL Ur Leukocyte Esterase Negative (Negative) Urine RBC >182 H (0-5) /hpf Urine WBC 21 H (0-5) /hpf Hyaline Casts 3 H (0-2) /lpf Urine Mucus Rare H (None) /hpf Disposition Clinical Impression: Kidney stone on left side Disposition: HOME SELF-CARE Condition: Good Instructions (If sedation given, give patient instructions): Kidney Stones (ED) Additional Instructions: Increase fluids. Take medication as directed. Return to the emergency department for any new, worsening, or concerning symptoms. Prescriptions: Tamsulosin HCl [Flomax] 0.4 mg PO DAILY #7 cap Ibuprofen [Motrin] 600 mg PO Q8HR PRN #30 tab PRN Reason: Pain Ondansetron [Zofran ODT] 4 mg PO Q8HR PRN #20 tab PRN Reason: Nausea Is patient prescribed a controlled substance at d/c from ED?: No Referrals: Maximo Lima DO [Primary Care Provider] - 1-2 days Eric Ceron MD [STAFF PHYSICIAN] - 1-2 days
[2019-07-18 03:55] LABS: ALT 34 U/L (21-72); AST 34 U/L (17-59); African American GFR (CKD) >90 (>60 ml/min/1.73 sqM); Albumin 4.1 g/dL (3.5-5.0); Alkaline Phosphatase 88 U/L (38-126); Amylase 86 U/L (30-110); Anion Gap 8 mmol/L; Blood Urea Nitrogen 13 mg/dL (9-20); Calcium 8.9 mg/dL (8.4-10.2); Carbon Dioxide 25 mmol/L (22-30); Chloride 108 mmol/L (98-107); Glucose 108 mg/dL (74-99); Potassium 3.7 mmol/L (3.5-5.1); Sodium 141 mmol/L (137-145); Total Bilirubin 0.4 mg/dL (0.2-1.3); Total Protein 6.6 g/dL (6.3-8.2)
[2019-07-18 03:56] LABS: Appearance,Urine Clear (Clear); Bilirubin,Urine Negative (Negative); Blood,Urine Large (Negative); Color,Urine Yellow; Glucose,Urine (UA) Negative (Negative); Hyaline Casts,Urine 3 /lpf (0-2); Ketones,Urine Negative (Negative); Leukocyte Esterase,Urine Negative (Negative); Mucus,Urine Rare /hpf; Nitrite,Urine Negative (Negative); Protein,Urine Negative (Negative); RBC,Urine >182 /hpf (0-5); Specific Gravity,Urine 1.015 (1.001-1.035); Urobilinogen,Urine <2.0 mg/dL (<2.0); WBC,Urine 21 /hpf (0-5)
[2019-07-18] MEDS ORDERED: ONDANSETRON 4 MG ODT STARTER PACK 2 TAB BTL PO STA (03:58)
[2019-07-18] MEDS ORDERED: IBUPROFEN 600 MG STARTER PACK 4 TAB BTL PO STA (03:58)
[2019-07-18] MEDS ORDERED: TAMSULOSIN 0.4 MG CAP.ER.24H PO STA (03:58)
[2019-07-18] MEDS ORDERED: ACET/COD 300 MG/30 MG STARTER PACK 6 TAB BTL PO STA (03:58)
[2019-07-18] MEDS ORDERED: MORPHINE SULFATE 4 MG/ML SYRINGE IV STA (04:44)
[2019-07-18 05:58] VITALS: BP 130/62; PULSE 80; RESP 17; TEMP 98.1
== END 2019-07-18 05:58 | disposition home or self-care (01) ==
LOC: EC 02:55
DX: N20.0 Calculus of kidney (principal); M06.9 Rheumatoid arthritis, unspecified; F17.200 Nicotine dependence, unspecified, uncomplicated; Z87.440 Personal history of urinary (tract) infections; Z79.1 Long term (current) use of non-steroidal anti-inflammatories (NSAID); Z91.040 Latex allergy status
CPT/HCPCS: 36415; 74018; 80053; 81001; 82150; 83690; 85025; 96361; 96374; 96375; 99285

== ENCOUNTER 2019-07-29 19:36 | Emergency (ER) | payer OTHER ==
[2019-07-29 20:02] VITALS: RESP 20; TEMP 98.1
[2019-07-29] MEDS ORDERED: ONDANSETRON 4 MG/2 ML VIAL IVP STA (20:57)
[2019-07-29] MEDS ORDERED: MORPHINE SULFATE 4 MG/ML SYRINGE IV STA (20:57)
[2019-07-29] MEDS ORDERED: SODIUM CHLORIDE 0.9% 1,000 ML IV STA (20:57)
--- NOTE | 2019-07-29 20:57 | ED ---
General Adult HPI - General Chief complaint: Abdominal Pain Stated complaint: Post Op Abd Pain & Fever Time Seen by Provider: 07/29/19 20:34 Source: patient, RN notes reviewed, old records reviewed Mode of arrival: ambulatory Limitations: no limitations - History of Present Illness Initial comments: 34-year-old male patient past medical history significant for rheumatoid arthritis presents to ED chief complaint postoperative pain. Patient reports that this morning he had an outpatient surgical procedure cystoscopy, renal calculi removal. Patient reports that since discharge she has had pain in his right flank region. Reports nausea and vomiting. Patient states that he has been given Motrin 800 suture did not help the pain. Patient also reports that he has been feeling cold. Denies any other complaints at this time. Systemic: Pt denies fatigue, fever/chills, rash. Pt denies weakness, night sweats, weight loss. Neuro: Pt denies headache, visual disturbances, syncope or pre-syncope. HEENT: Pt denies ocular discharge or irritation, otalgia, rhinorrhea, pharyngitis or notable lymphadenopathy. Cardiopulmonary: Pt denies chest pain, SOB, heart palpitations, dyspnea on exertion. Abdominal/GI: Pt denies diarrhea. : Pt denies dysuria, burning w/ urination, frequency/urgency. Denies new onset urinary or bowel incontinence. MSK: Pt denies myalgia, loss of strength or function in extremities. Neuro: Pt denies new onset weakness, paresthesias. - Related Data Previous Rx's Medication Instructions Recorded Ibuprofen [Motrin] 600 mg PO Q8HR PRN #30 tab 07/18/19 Ondansetron [Zofran ODT] 4 mg PO Q8HR PRN #20 tab 07/18/19 Tamsulosin HCl [Flomax] 0.4 mg PO DAILY #7 cap 07/18/19 Cephalexin [Keflex] 500 mg PO Q12HR 7 Days #14 cap 07/29/19 Tamsulosin [Flomax] 0.4 mg PO DAILY #10 cap 07/29/19 Allergies Allergy/AdvReac Type Severity Reaction Status Date / Time adhesive tape Allergy Rash/Hives Verified 07/29/19 20:42 Review of Systems ROS Statement: Those systems with pertinent positive or pertinent negative responses have been documented in the HPI. ROS Other: All systems not noted in ROS Statement are negative. Past Medical History Past Medical History: Memory Impairment, Rheumatoid Arthritis (RA), Seizure Disorder Additional Past Medical History / Comment(s): KIDNEY STONES, UTI, ULCERS, previous IVDA History of Any Multi-Drug Resistant Organisms: None Reported Additional Past Surgical History / Comment(s): left shoulder, right wrist, bladder scope Past Anesthesia/Blood Transfusion Reactions: No Reported Reaction Past Psychological History: Anxiety, Depression Smoking Status: Current every day smoker Past Alcohol Use History: None Reported Past Drug Use History: Marijuana - Past Family History Mother Family Medical History: Hypertension, Myocardial Infarction ([place]) Additional Family Medical History / Comment(s): MS Father History Unknown: Yes General Exam - General Exam Comments Initial Comments: Constitutional: NAD, AOX3, Pt has pleasant affect. HEENT: NC/AT, trachea midline, neck supple, no lymphadenopathy. Posterior pharynx non erythematous, without exudates. External ears appear normal, without discharge. Mucous membranes moist. Eyes PERRLA, EOM intact. There is no scleral icterus. No pallor noted. Cardiopulmonary: RRR, no murmurs, rubs or gallops, no JVD noted. Lungs CTAB in anterior and posterior briceno. No peripheral edema. Abdominal exam: Abdomen soft and non-distended. Abdomen non-tender to palpation in all 4 quadrants. Bowel sounds active in LLQ. No hepatosplenomegaly. No ecchymosis. Right CVA tenderness noted. Neuro: CN II-XII grossly intact. No nuchal rigidity. No raccon eyes, no corona sign, no hemotympanum. No cervical spinal tenderness. MSK: No posterior calf tenderness bilaterally, homans sign negative bilaterally. Posterior tibialis and radial pulse +2 bilaterally. Sensation intact in upper and lower extremities. Full active ROM in upper and lower extremities, 5/5 str egnth. Limitations: no limitations Course Vital Signs 07/29/19 19:58 Temperature 98.1 F Pulse Rate 50 L Respiratory 20 Rate Blood Pressure 180/76 O2 Sat by Pulse 100 Oximetry Medical Decision Making - Medical Decision Making 34-year-old male patient past medical history significant for rheumatoid arthritis presents to ED chief complaint postoperative pain. Patient reports that this morning he had an outpatient surgical procedure cystoscopy, renal calculi removal. Patient reports that since discharge she has had pain in his right flank region. Reports nausea and vomiting. Patient states that he has been given Motrin 800 suture did not help the pain. Patient also reports that he has been feeling cold. Denies any other complaints at this time. Patient also displayed mild hypertension likely secondary to pain. Otherwise stable. Physical exam displayed mild right CVA tenderness. Laboratory investigations non-impressive. UA displayed blood. Moderate leukocyte esterase. Case was discussed with urologist Dr. Russo who recommended that if patient is feeling improved he may be discharged with flomax and will see him in the office on an outpatient basis. Patient feeling much improved with analgesic. Patient will be discharged with prophylactic Keflex due to leukocyte esterase. And return precautions. Case discussed with Dr. Maria. - Lab Data Result diagrams: 07/29/19 21:16 07/29/19 21:16 Lab Results 07/29/19 07/29/19 07/29/19 Range/Units 21:16 21:16 21:36 WBC 14.8 H (3.8-10.6) k/uL RBC 4.98 (4.30-5.90) m/uL Hgb 15.6 (13.0-17.5) gm/dL Hct 43.9 (39.0-53.0) % MCV 88.1 (80.0-100.0) fL MCH 31.3 (25.0-35.0) pg MCHC 35.5 (31.0-37.0) g/dL RDW 12.4 (11.5-15.5) % Plt Count 236 (150-450) k/uL Neutrophils % 91 % Lymphocytes % 5 % Monocytes % 3 % Eosinophils % 0 % Basophils % 0 % Neutrophils # 13.5 H (1.3-7.7) k/uL Lymphocytes # 0.8 L (1.0-4.8) k/uL Monocytes # 0.4 (0-1.0) k/uL Eosinophils # 0.0 (0-0.7) k/uL Basophils # 0.0 (0-0.2) k/uL Sodium 139 (137-145) mmol/L Potassium 3.9 (3.5-5.1) mmol/L Chloride 104 (98-107) mmol/L Carbon Dioxide 22 (22-30) mmol/L Anion Gap 13 mmol/L BUN 14 (9-20) mg/dL Creatinine 0.73 (0.66-1.25) mg/dL Est GFR (CKD-EPI)AfAm >90 (>60 ml/min/1.73 sqM) Est GFR (CKD-EPI)NonAf >90 (>60 ml/min/1.73 sqM) Glucose 118 H (74-99) mg/dL Calcium 9.6 (8.4-10.2) mg/dL Total Bilirubin 0.8 (0.2-1.3) mg/dL AST 33 (17-59) U/L ALT 41 (21-72) U/L Alkaline Phosphatase 82 (38-126) U/L Total Protein 7.0 (6.3-8.2) g/dL Albumin 4.5 (3.5-5.0) g/dL Urine Color Red Urine Appearance Cloudy (Clear) Urine pH 6.0 (5.0-8.0) Ur Specific [place] 1.020 (1.001-1.035) Urine Protein 2+ H (Negative) Urine Glucose (UA) Negative (Negative) Urine Ketones 3+ H (Negative) Urine Blood Large H (Negative) Urine Nitrite Negative (Negative) Urine Bilirubin Negative (Negative) Urine Urobilinogen <2.0 (<2.0) mg/dL Ur Leukocyte Esterase Moderate H (Negative) Urine RBC >182 H (0-5) /hpf Urine Mucus Occasional H (None) /hpf Disposition Clinical Impression: Post-operative pain Disposition: HOME SELF-CARE Condition: Stable Instructions (If sedation given, give patient instructions): Cystoscopy (DC) Additional Instructions: Patient to adhere to previously discussed treatment plan and will take medication(s) as directed. Patient to follow up with PCP in 1-2 days. Patient to return to ED if symptoms do not improve. Follow up with urologist tomorrow. Take Medication as directed. Return to ER if condition worsens. Prescriptions: Tamsulosin [Flomax] 0.4 mg PO DAILY #10 cap Cephalexin [Keflex] 500 mg PO Q12HR 7 Days #14 cap Is patient prescribed a controlled substance at d/c from ED?: No Referrals: Maximo Lima DO [Primary Care Provider] - 1-2 days Tony Russo MD [STAFF PHYSICIAN] - 1-2 days
[2019-07-29 21:22] LABS: Basophils % (A) 0 %; Eosinophils % (A) 0 %; HCT 43.9 % (39.0-53.0); HGB 15.6 gm/dL (13.0-17.5); Lymphocytes # (A) 0.8 k/uL (1.0-4.8); Lymphocytes % (A) 5 %; MCH 31.3 pg (25.0-35.0); MCHC 35.5 g/dL (31.0-37.0); MCV 88.1 fL (80.0-100.0); Mean Platelet Volume 7.2; Monocytes # (A) 0.4 k/uL (0-1.0); Monocytes % (A) 3 %; Neutrophils # (A) 13.5 k/uL (1.3-7.7); Neutrophils % (A) 91 %; Platelet Count 236 k/uL (150-450); RBC 4.98 m/uL (4.30-5.90); RDW 12.4 % (11.5-15.5); WBC 14.8 k/uL (3.8-10.6)
[2019-07-29 21:32] LABS: ALT 41 U/L (21-72); AST 33 U/L (17-59); African American GFR (CKD) >90 (>60 ml/min/1.73 sqM); Albumin 4.5 g/dL (3.5-5.0); Alkaline Phosphatase 82 U/L (38-126); Anion Gap 13 mmol/L; Blood Urea Nitrogen 14 mg/dL (9-20); Calcium 9.6 mg/dL (8.4-10.2); Carbon Dioxide 22 mmol/L (22-30); Chloride 104 mmol/L (98-107); Glucose 118 mg/dL (74-99); Potassium 3.9 mmol/L (3.5-5.1); Sodium 139 mmol/L (137-145); Total Bilirubin 0.8 mg/dL (0.2-1.3)
[2019-07-29 21:44] LABS: Appearance,Urine Cloudy (Clear); Bilirubin,Urine Negative (Negative); Blood,Urine Large (Negative); Color,Urine Red; Glucose,Urine (UA) Negative (Negative); Ketones,Urine 3+ (Negative); Leukocyte Esterase,Urine Moderate (Negative); Mucus,Urine Occasional /hpf; Nitrite,Urine Negative (Negative); Protein,Urine 2+ (Negative); RBC,Urine >182 /hpf (0-5); Urobilinogen,Urine <2.0 mg/dL (<2.0)
[2019-07-29] MEDS ORDERED: HYDROmorphone 1 MG/ML 1 ML SYRINGE IVP STA (21:51)
[2019-07-29] MEDS ORDERED: HYDROmorphone 0.5 MG/0.5 ML SYRINGE IVP STA ×2 (21:52→22:33)
[2019-07-29] MEDS ORDERED: ACET/COD 300 MG/30 MG STARTER PACK 6 TAB BTL PO STA (23:00)
[2019-07-29 23:03] VITALS: BP 119/62; PULSE 64
== END 2019-07-29 23:27 | disposition home or self-care (01) ==
LOC: EC 19:36
DX: G89.18 Other acute postprocedural pain (principal); R10.9 Unspecified abdominal pain; I10 Essential (primary) hypertension; R31.9 Hematuria, unspecified; R82.998 Other abnormal findings in urine; R11.2 Nausea with vomiting, unspecified; F17.200 Nicotine dependence, unspecified, uncomplicated; Z91.048 Other nonmedicinal substance allergy status; Z82.49 Family history of ischemic heart disease and other diseases of the circulatory system
CPT/HCPCS: 36415; 80053; 85025; 81001; 99284; 96374; 96375 ×2; 96376; 96361 ×2; J2270; J2405; J1170

== ENCOUNTER 2019-11-03 08:14 | Emergency (ER) | payer OTHER ==
[2019-11-03] MEDS ORDERED: KETOROLAC 30 MG/ML 1 ML VIAL IVP STA (08:18)
[2019-11-03] MEDS ORDERED: SODIUM CHLORIDE 0.9% 500 ML 500 ML IV STA (08:18)
[2019-11-03 08:21] VITALS: RESP 16
--- NOTE | 2019-11-03 08:21 | ED ---
General Adult HPI - General Stated complaint: RT sided flank pain Time Seen by Provider: 11/03/19 08:14 Source: RN notes reviewed, old records reviewed - History of Present Illness Initial comments: This is a 34-year-old male who presents emergency department with past medical history significant for kidney stones. Patient states he had sudden onset of right flank pain which radiated to his lower abdomen. Patient states it does not feel like kidney stone. Patient states it was sudden in onset however. Patient states the pain is significant. Patient received [address] of f[address]anyl on the way in and some Zofran however he still continues to have pain. Patient denies any hematuria or dysuria. Patient denies any fever chills. Patient denies any diarrhea. Patient denies any chest pain shortness of breath or difficulty breathing. Patient denies any recent injury or trauma. - Related Data Previous Rx's Medication Instructions Recorded Ibuprofen [Motrin] 600 mg PO Q8HR PRN #30 tab 07/18/19 Ondansetron [Zofran ODT] 4 mg PO Q8HR PRN #20 tab 07/18/19 Tamsulosin HCl [Flomax] 0.4 mg PO DAILY #7 cap 07/18/19 Cephalexin [Keflex] 500 mg PO Q6HR 7 Days #28 cap 07/29/19 Tamsulosin [Flomax] 0.4 mg PO DAILY #10 cap 07/29/19 Ketorolac [Toradol] 10 mg PO Q6HR #15 tab 11/03/19 Tamsulosin [Flomax] 0.4 mg PO DAILY #10 cap 11/03/19 Allergies Allergy/AdvReac Type Severity Reaction Status Date / Time adhesive tape Allergy Rash/Hives Verified 11/03/19 08:21 Review of Systems ROS Statement: Those systems with pertinent positive or pertinent negative responses have been documented in the HPI. ROS Other: All systems not noted in ROS Statement are negative. Past Medical History Past Medical History: Memory Impairment, Rheumatoid Arthritis (RA), Seizure Disorder Additional Past Medical History / Comment(s): KIDNEY STONES, UTI, ULCERS, previous IVDA History of Any Multi-Drug Resistant Organisms: None Reported Additional Past Surgical History / Comment(s): left shoulder, right wrist, bladder scope Past Anesthesia/Blood Transfusion Reactions: No Reported Reaction Past Psychological History: Anxiety, Depression Smoking Status: Current every day smoker Past Alcohol Use History: None Reported Past Drug Use History: Marijuana - Past Family History Mother Family Medical History: Hypertension, Myocardial Infarction ([place]) Additional Family Medical History / Comment(s): MS Father History Unknown: Yes General Exam - General Exam Comments Initial Comments: GENERAL: Patient is well-developed and well-nourished. Patient is nontoxic and well-h ydrated and is in mild distress. ENT: Neck is soft and supple. No significant lymphadenopathy is noted. Oropharynx is clear. Moist mucous membranes. Neck has full range of motion without eliciting any pain. EYES: The sclera were anicteric and conjunctiva were pink and moist. Extraocular move ments were intact and pupils were equal round and reactive to light. Eyelids were unremarkable. PULMONARY: Unlabored respirations. Good breath sounds bilaterally. No audible rales rhonchi or wheezing was noted. CARDIOVASCULAR: There is a regular rate and rhythm without any murmurs gallops or rubs. ABDOMEN: Soft and nontender with normal bowel sounds. SKIN: Skin is clear with no lesions or rashes and otherwise unremarkable. NEUROLOGIC: Patient is alert and oriented x3. Cranial nerves II through XII are grossly intact. Motor and sensory are also intact. Normal speech, volume and content. Symmetrical smile. MUSCULOSKELETAL: Normal extremities with adequate strength and full range of motion. LYMPHATICS: No significant lymphadenopathy is noted PSYCHIATRIC: Normal psychiatric evaluation. Course Vital Signs 11/03/19 08:19 Temperature 97.8 F Pulse Rate 68 Respiratory 16 Rate Blood Pressure 140/114 O2 Sat by Pulse 100 Oximetry Medical Decision Making - Medical Decision Making Computed tomography scan shows a 5 mm stone with some mild hydronephrosis on the right. - Lab Data Result diagrams: 11/03/19 08:25 11/03/19 08:25 Lab Results 11/03/19 11/03/19 11/03/19 Range/Units 08:25 08:25 09:25 WBC 15.0 H (3.8-10.6) k/uL RBC 5.41 (4.30-5.90) m/uL Hgb 17.0 (13.0-17.5) gm/dL Hct 50.1 (39.0-53.0) % MCV 92.6 (80.0-100.0) fL MCH 31.4 (25.0-35.0) pg MCHC 33.9 (31.0-37.0) g/dL RDW 12.6 (11.5-15.5) % Plt Count 262 (150-450) k/uL Neutrophils % 78 % Lymphocytes % 13 % Monocytes % 4 % Eosinophils % 2 % Basophils % 1 % Neutrophils # 11.7 H (1.3-7.7) k/uL Lymphocytes # 1.9 (1.0-4.8) k/uL Monocytes # 0.7 (0-1.0) k/uL Eosinophils # 0.4 (0-0.7) k/uL Basophils # 0.2 (0-0.2) k/uL Sodium 139 (137-145) mmol/L Potassium 4.5 (3.5-5.1) mmol/L Chloride 108 H (98-107) mmol/L Carbon Dioxide 21 L (22-30) mmol/L Anion Gap 10 mmol/L BUN 18 (9-20) mg/dL Creatinine 0.76 (0.66-1.25) mg/dL Est GFR (CKD-EPI)AfAm >90 (>60 ml/min/1.73 sqM) Est GFR (CKD-EPI)NonAf >90 (>60 ml/min/1.73 sqM) Glucose 146 H (74-99) mg/dL Calcium 10.1 (8.4-10.2) mg/dL Total Bilirubin 1.1 (0.2-1.3) mg/dL AST 74 H (17-59) U/L ALT 68 H (4-49) U/L Alkaline Phosphatase 111 (38-126) U/L Total Protein 8.0 (6.3-8.2) g/dL Albumin 4.9 (3.5-5.0) g/dL Amylase 98 (30-110) U/L Lipase 200 (23-300) U/L Urine Color [place] Red Urine Appearance Cloudy (Clear) Urine pH 5.5 (5.0-8.0) Ur Specific [place] 1.019 (1.001-1.035) Urine Protein 1+ H (Negative) Urine Glucose (UA) Negative (Negative) Urine Ketones 1+ H (Negative) Urine Blood Large H (Negative) Urine Nitrite Negative (Negative) Urine Bilirubin Negative (Negative) Urine Urobilinogen <2.0 (<2.0) mg/dL Ur Leukocyte Esterase Small H (Negative) Urine RBC >182 H (0-5) /hpf Urine WBC 3 (0-5) /hpf Urine Bacteria Rare H (None) /hpf Urine Mucus Rare H (None) /hpf Urine Yeast (Budding) Many H (None) /hpf Disposition Clinical Impression: Kidney stone, Hydronephrosis Disposition: HOME SELF-CARE Condition: Good Prescriptions: Tamsulosin [Flomax] 0.4 mg PO DAILY #10 cap Ketorolac [Toradol] 10 mg PO Q6HR #15 tab Is patient prescribed a controlled substance at d/c from ED?: No Referrals: Maximo Lima DO [Primary Care Provider] - 1-2 days Time of Disposition: 10:19
[2019-11-03 08:36] LABS: Basophils # (A) 0.2 k/uL (0-0.2); Basophils % (A) 1 %; Eosinophils # (A) 0.4 k/uL (0-0.7); Eosinophils % (A) 2 %; HCT 50.1 % (39.0-53.0); Lymphocytes # (A) 1.9 k/uL (1.0-4.8); Lymphocytes % (A) 13 %; MCH 31.4 pg (25.0-35.0); MCHC 33.9 g/dL (31.0-37.0); MCV 92.6 fL (80.0-100.0); Mean Platelet Volume 8.2; Monocytes # (A) 0.7 k/uL (0-1.0); Monocytes % (A) 4 %; Neutrophils # (A) 11.7 k/uL (1.3-7.7); Neutrophils % (A) 78 %; Platelet Count 262 k/uL (150-450); RBC 5.41 m/uL (4.30-5.90); RDW 12.6 % (11.5-15.5)
--- NOTE | 2019-11-03 08:45 | XR ---
EXAMINATION TYPE: XR KUB DATE OF EXAM: 11/03/2019 CLINICAL DATA: 34-year-old male with abdominal pain, [facility] COMPARISON: 07/18/2019 FINDINGS: Lung bases are clear. No evidence for free intraperitoneal air. Moderate stool in the right side of the abdomen. No dilated small bowel or differential air-fluid levels. Couple densities left mid abdomen measuring up to 4 mm. Bowel content largely obscures the right ernie l shadow. IMPRESSION: 1. Suspect a couple of nonobstructive left renal calculi measuring up to 4 mm. 2. Moderate stool on the right. Bowel content largely obscures the right renal shadow. 3. No evidence for bowel obstruction or free air.
--- NOTE | 2019-11-03 08:53 | CT ---
EXAMINATION TYPE: CT abdomen pelvis wo con DATE OF EXAM: 11/03/2019 COMPARISON: 04/16/2019 HISTORY: 34-year-old male Right sided flank pain with history of renal stones CT DLP: 852.9 mGycm. Automated exposure control for dose reduction was used. TECHNIQUE: Contiguous axial scanning of the abdomen and pelvis without IV contrast. Coronal and sagit etta reconstructions performed. FINDINGS: Heart normal size without pericardial effusion. Lung bases clear without pleural effusion. Noncontrast appearance of the liver, gallbladder, right adrenal gland, and pancreas show no gross abn ormality. 1.5 cm low-density nodule left adrenal gland, attenuation of -10 Hounsfield units, compatible with li pid rich adrenal adenoma. 4 mm nonobstructive left lower pole renal calculus. Vague 1.4 cm hypodensity left upper pole unchange d from 04/16/2019, probable underlying cortical cyst. Nonobstructive 3 mm posterior mid pole right renal calculus. There is mild right-sided pelvocaliectas is and a 5 mm calculus at the right EJ. No dilated small bowel, free fluid, or free air. No mesenteric or retroperitoneal lymphadenopathy. St able prominent 8 mm upper left periaortic lymph node suggesting a benign etiology. Normal appendix. Left-sided clonic diverticulosis without pericolonic inflammatory change. Mild to moderate overall st ool burden. Bladder is urine distended. Slightly patulous left inguinal canal. Right-sided pelvic phlebolith. No abnormal fluid collection in the pelvis or pelvic lymphadenopathy. Bones: Mild degenerative changes of the hips. No osseous destructive process. IMPRESSION: 1. 5 mm stone at the right UPJ with early right-sided mild hydronephrosis. 2. Additional small nonobstructive bilateral renal calculi. 3. Left-sided chronic diverticulosis without acute diverticulitis.
[2019-11-03 08:58] LABS: ALT 68 U/L (4-49); African American GFR (CKD) >90 (>60 ml/min/1.73 sqM); Albumin 4.9 g/dL (3.5-5.0); Amylase 98 U/L (30-110); Anion Gap 10 mmol/L; Blood Urea Nitrogen 18 mg/dL (9-20); Calcium 10.1 mg/dL (8.4-10.2); Carbon Dioxide 21 mmol/L (22-30); Chloride 108 mmol/L (98-107); Glucose 146 mg/dL (74-99); Non-African American GFR(CKD) >90 (>60 ml/min/1.73 sqM); Sodium 139 mmol/L (137-145); Total Bilirubin 1.1 mg/dL (0.2-1.3)
[2019-11-03 09:01] LABS: AST 74 U/L (17-59); Alkaline Phosphatase 111 U/L (38-126); Potassium 4.5 mmol/L (3.5-5.1)
[2019-11-03] MEDS ORDERED: HYDROmorphone 1 MG/ML 1 ML SYRINGE IVP STA (09:57)
[2019-11-03 10:09] LABS: Appearance,Urine Cloudy (Clear); Bacteria,Urine Rare /hpf; Bilirubin,Urine Negative (Negative); Blood,Urine Large (Negative); Budding Yeast,Urine Many /hpf; Color,Urine Light Red; Glucose,Urine (UA) Negative (Negative); Ketones,Urine 1+ (Negative); Leukocyte Esterase,Urine Small (Negative); Mucus,Urine Rare /hpf; Nitrite,Urine Negative (Negative); PH, Urine 5.5 (5.0-8.0); Protein,Urine 1+ (Negative); RBC,Urine >182 /hpf (0-5); Specific Gravity,Urine 1.019 (1.001-1.035); Urobilinogen,Urine <2.0 mg/dL (<2.0); WBC,Urine 3 /hpf (0-5)
[2019-11-03 10:46] VITALS: BP 124/70; PULSE 65; TEMP 98
== END 2019-11-03 10:46 | disposition home or self-care (01) ==
LOC: EC 08:14
DX: N13.2 Hydronephrosis with renal and ureteral calculous obstruction (principal); F17.200 Nicotine dependence, unspecified, uncomplicated; Z91.048 Other nonmedicinal substance allergy status
CPT/HCPCS: 36415; 80053; 82150; 83690; 85025; 81001; 74018; 74176; 99285; 96374; 96375; 96361 ×2; J1885; J1170

== ENCOUNTER → 2020-08-25 | Outpatient (CLI) | payer OTHER ==
--- NOTE | 2020-08-25 15:18 | CT ---
EXAMINATION TYPE: CT urogram wo/w con DATE OF EXAM: 08/25/2020 COMPARISON: HISTORY: Gross hematuria. CT DLP: 1601.2 mGycm, Automated Exposure Control for Dose Reduction was Utilized. CONTRAST: CT scan of the abdomen and pelvis is performed with oral and without and with IV Contrast, patient in jected with 100ml mL of Isovue 300. FINDINGS: LUNG BASES: No significant abnormality is appreciated. LIVER/GB: No significant abnormality is appreciated. PANCREAS: No significant abnormality is seen. SPLEEN: Borderline enlarged ADRENALS: No significant abnormality is seen. KIDNEYS: Multiple calcifications are present within the kidneys, at least 2 1 to 2 mm calcifications present in the midpole upper pole the right kidney, left kidney shows mid to lower pole calcification s measuring approximately 4 to 5 mm, there is no hydronephrosis. Low dense focus at the upper pole th e left kidney measures 18 mm. No evident ureteral calculus. Ureters show normal course and caliber. BOWEL: Diverticular change noted in the sigmoid colon. PROSTATE/SEMINAL VESICLES: No gross abnormali ty seen. LYMPH NODES: No greater than 1cm abdominal or pelvic lymph nodes are appreciated. OSSEOUS STRUCTURES: No significant abnormality is seen. OTHER: No significant additional abnormality is seen. IMPRESSION: Bilateral nonobstructive nephrolithiasis.
== END | disposition home or self-care (01) ==
LOC: RADCTMAIN 12:12
PROVIDERS: ATTEND Urology
DX: N20.0 Calculus of kidney (principal)
CPT/HCPCS: 74178; 74400; Q9967

== ENCOUNTER → 2020-09-16 | Outpatient (CLI) | payer OTHER ==
[2020-09-16 15:41] LABS: Basophils # (A) 0.1 k/uL (0-0.2); Basophils % (A) 1 %; Eosinophils # (A) 0.4 k/uL (0-0.7); Eosinophils % (A) 7 %; HCT 44.2 % (39.0-53.0); Lymphocytes # (A) 1.6 k/uL (1.0-4.8); Lymphocytes % (A) 28 %; MCH 30.9 pg (25.0-35.0); MCV 90.8 fL (80.0-100.0); Mean Platelet Volume 7.3; Monocytes # (A) 0.4 k/uL (0-1.0); Monocytes % (A) 7 %; Neutrophils # (A) 3.2 k/uL (1.3-7.7); Neutrophils % (A) 55 %; Platelet Count 219 k/uL (150-450); RBC 4.87 m/uL (4.30-5.90); WBC 5.8 k/uL (3.8-10.6)
[2020-09-16 15:46] LABS: Appearance,Urine Clear (Clear); Bacteria,Urine Occasional /hpf; Bilirubin,Urine Negative (Negative); Blood,Urine Moderate (Negative); Color,Urine Yellow; Glucose,Urine (UA) Negative (Negative); Hyaline Casts,Urine 1 /lpf (0-2); Ketones,Urine Negative (Negative); Leukocyte Esterase,Urine Trace (Negative); Mucus,Urine Few /hpf; Nitrite,Urine Negative (Negative); Protein,Urine Trace (Negative); RBC,Urine >182 /hpf (0-5); Specific Gravity,Urine 1.021 (1.001-1.035); Squamous Epithelial Cell,Urine <1 /hpf (0-4); Urobilinogen,Urine <2.0 mg/dL (<2.0); WBC,Urine 6 /hpf (0-5)
[2020-09-16 16:13] LABS: African American GFR (CKD) >90 (>60 ml/min/1.73 sqM); Anion Gap 7 mmol/L; Blood Urea Nitrogen 17 mg/dL (9-20); Calcium 9.6 mg/dL (8.4-10.2); Carbon Dioxide 27 mmol/L (22-30); Chloride 103 mmol/L (98-107); Glucose 111 mg/dL (74-99); Non-African American GFR(CKD) >90 (>60 ml/min/1.73 sqM); Potassium 4.2 mmol/L (3.5-5.1); Sodium 137 mmol/L (137-145)
== END | disposition home or self-care (01) ==
LOC: LABPAT 14:48
PROVIDERS: ATTEND Urology
DX: Z01.818 Encounter for other preprocedural examination (principal); N20.0 Calculus of kidney; R31.21 Asymptomatic microscopic hematuria
CPT/HCPCS: 36415; 80048; 81001; 85025; 87086

== ENCOUNTER 2020-09-21 10:18 | Day surgery (SDC) | payer OTHER ==
[2020-09-17 10:46] VITALS: BMI 30.7
--- NOTE | 2020-09-20 15:40 | P.HPIHPCON ---
History of Present Illness H&P Date: 09/20/20 Chief Complaint: left flank pain 35 yo male with hx of left flank pain, He underwent CT which showed two 4 mm stone in the kidney. Discussed The option of doing ureterscopy with him. Discussed with him the risk and benefit of surgery. Discussed with him risk which includes but no limited to bleeding, infection, and injury to the ureter. He understood all the risk and agreed to proceed. Consent for Procedure: I have explained the operation/procedure to the patient, including the risks, benefits, side effects, alternative therapies (including not receiving the proposed treatment or service), the likelihood of the patient achieving his/her goals, and potential recuperation problems for the procedure/sedation/analgesia, as well as any blood products, if indicated. I also explained to the patient the risks, benefits and side effects of the alternatives, as well as the risks related to not receiving the proposed procedure, care, treatment, or services. - Constitutional Constitutional: Denies chills, Denies fever - Cardiovascular Cardiovascular: Denies chest pain, Denies shortness of breath - Gastrointestinal Gastrointestinal: Denies abdominal pain, Denies diarrhea, Denies nausea, Denies vomiting - Genitourinary (Male) Genitourinary: Reports flank pain, Denies dysuria, Denies hematuria - Musculoskeletal Musculoskeletal: Denies myalgias Past Medical History Past Medical History: Memory Impairment, Rheumatoid Arthritis (RA), Seizure Disorder Additional Past Medical History / Comment(s): KIDNEY STONES, UTI, ULCERS, LAST SEIZURES AUG 2018 , History of Any Multi-Drug Resistant Organisms: None Reported Past Surgical History: Orthopedic Surgery Additional Past Surgical History / Comment(s): left shoulder, right wrist, bladder scope Past Anesthesia/Blood Transfusion Reactions: No Reported Reaction Smoking Status: Current every day smoker - Past Family History Mother Family Medical History: Hypertension, Myocardial Infarction ([place]) Additional Family Medical History / Comment(s): MS Father History Unknown: Yes Medications and Allergies Home Medications Medication Instructions Recorded Confirmed Type Ibuprofen [Motrin] 600 mg PO Q8HR PRN #30 tab 07/18/19 09/17/20 Rx Ondansetron [Zofran ODT] 4 mg PO Q8HR PRN #20 tab 07/18/19 09/17/20 Rx Acetaminophen Tab [Tylenol] 650 mg PO Q4H PRN 09/17/20 09/17/20 History Allergies Allergy/AdvReac Type Severity Reaction Status Date / Time adhesive tape Allergy Rash/Hives Verified 09/17/20 10:12 banana Allergy Dyspnea Verified 09/17/20 10:35 codeine Allergy Rash/Hives Verified 09/17/20 10:13 propoxyphene Allergy Rash/Hives Verified 09/17/20 10:12 [From [facility]N [facility]] Surgical - Exam - General well developed, well nourished, no distress, moderate pain - Eyes PERRL, normal ocular movement - ENT normal nares, normal mucosa - Respiratory normal expansion, normal respiratory effort - Abdomen Abdomen: soft, non tender - Psychiatric oriented to time, oriented to person, oriented to place Assessment and Plan Assessment: 35 yo male with with hx of left renal mass -OR for left ureteroscopy with homium laser, stone basketting and stent placement.
[~2020-09-21 10:18] MED LIST: DEXAMETHASONE SOD PHOSPHATE 4 MG/ML 1 ML VIAL IV ONE; HYDROmorphone 0.5 MG/0.5 ML SYRINGE IVP PRN; LACTATED RINGERS 1,000 ML IV SCH; ONDANSETRON 4 MG/2 ML VIAL IVP ONE
[2020-09-21 10:38] VITALS: RESP 16
--- NOTE | 2020-09-21 10:46 | XR ---
EXAMINATION TYPE: XR KUB DATE OF EXAM: 09/21/2020 10:27 AM CLINICAL HISTORY: Left-sided renal stone TECHNIQUE: Supine images of the abdomen and pelvis were obtained COMPARISON: CT urogram 08/25/2020. FINDINGS: There are 2 calculi overlying the left renal lower pole measuring up to 4 mm and 5 mm. Ther e is a 2 mm calculus overlying the right renal upper pole. Pelvic phlebolith on the right. Nonspecifi c bowel gas pattern. Osseous structures are intact. IMPRESSION: 1. Left nephrolithiasis measuring 4 mm and 5 mm. 2. Right nephrolithiasis measuring 2 mm.
[2020-09-21] MEDS ORDERED: SUCCINYLCHOLINE CHLORIDE 100 MG/5 ML SYR IV ONE (12:05)
[2020-09-21] MEDS ORDERED: NEOSTIGMINE 1 MG/ML 10 ML VIAL ONE (12:05)
[2020-09-21] MEDS ORDERED: MIDAZOLAM 2 MG/2 ML VIAL ONE (12:05)
[2020-09-21] MEDS ORDERED: fentaNYL (PF) 50 MCG/ML 2 ML AMP ONE (12:05)
[2020-09-21] MEDS ORDERED: PROPOFOL 10 MG/ML 20 ML VIAL IV ONE (12:05)
[2020-09-21] MEDS ORDERED: LIDOCAINE 1% INJ 10MG/ML (20 ML MDV) ONE (12:05)
[2020-09-21] MEDS ORDERED: GLYCOPYRROLATE 0.2 MG/ML 2 ML VIAL ONE (12:05)
[2020-09-21] MEDS ORDERED: ROCURONIUM 10 MG/ML (10 ML VIAL) IV ONE (12:05)
[2020-09-21] MEDS ORDERED: KETOROLAC 15 MG/ML 1 ML VIAL ONE (12:05)
--- NOTE | 2020-09-21 13:29 | P.OP ---
Date of Procedure: 09/21/20 Preoperative Diagnosis: left renal calculi Postoperative Diagnosis: same Procedure(s) Performed: Cystoscopy, left ureteroscopy, holmium laser lithotripsy, stone basketing and stent placement Implants: 6-Ghanaian by 24 cm stent left on a string Anesthesia: ANDREW Surgeon: Tony Russo Estimated Blood Loss (ml): 5 Pathology: other (Left renal calculi) Condition: stable Disposition: PACU Indications for Procedure: 35 yo male with hx of left flank pain, He underwent CT which showed two 4 mm stone in the kidney. Discussed The option of doing ureterscopy with him. Discussed with him the risk and benefit of surgery. Discussed with him risk which includes but no limited to bleeding, infection, and injury to the ureter. He understood all the risk and agreed to proceed. Operative Findings: 2 large stones within the lower pole Description of Procedure: Patient was brought to the operating room, general anesthesia was induced. He was prepped and draped in sterile fashion placed in a dorsal lithotomy position. Cystoscopy fitted with a 21-Ghanaian sheath was inserted per urethra, cystoscopy was performed showed no abnormality within the bladder. At this time attention was carried to the left ureteral orifice, clear urine reflux was seen from the left ureteral orifice. At this time the left ureteral orifice was intubated with a sensor wire which was advanced to the renal pelvis under fluoroscopy. Next an 25-45-Ekjoru access sheath was advanced over the wire under fluoroscopy to the proximal ureter. Next a flexor ureteroscope was inserted through the access sheath, renoscopy was performed showed no abnormality within the kidney, but patient had 2 large stones within the lower pole. Both stones were repositioned to the upper pole using the stone basket. Using the holmium laser the stones were fragmented into smaller fragments. sizable fragments were removed and sent for analysis. Repeat renoscopy showed no sizable fragments or injury to the kidney. Of note the patient had very friable mucosa within the kidney. Pullback ureteroscopy was performed showed no injury to the ureter or any ureteral stone. Next a 6-Ghanaian by 24 cm stent was advanced over the wire, the proximal curl was visualized on fluoroscopy and the distal curl was visualized using cystoscope. The stent was left on a string. The bladder was emptied and the case. The patient tolerated the procedure was taken to PACU in stable condition
[2020-09-21 13:38] VITALS: TEMP 96.8
[2020-09-21 14:32] VITALS: BP 146/85; PULSE 52
--- NOTE | 2020-09-21 16:42 | FL ---
EXAMINATION TYPE: FL urography retrograde DATE OF EXAM: 09/21/2020 COMPARISON: NONE HISTORY: Left stent placement TECHNIQUE: Fluoroscopy. FINDINGS: Fluoroscopic guidance was provided during procedure performed by Dr. Russo. A total of 2 4 seconds of fluoroscopic time was utilized during the procedure and 2 spot images was acquired. IMPRESSION: As Above.
== END 2020-09-21 14:35 | disposition home or self-care (01) ==
LOC: OR 10:18
PROVIDERS: ATTEND Urology
DX: N20.0 Calculus of kidney (principal); Z87.442 Personal history of urinary calculi; F17.210 Nicotine dependence, cigarettes, uncomplicated; M06.9 Rheumatoid arthritis, unspecified; F41.9 Anxiety disorder, unspecified; F32.9 Major depressive disorder, single episode, unspecified; G40.909 Epilepsy, unspecified, not intractable, without status epilepticus; R41.3 Other amnesia; Z79.899 Other long term (current) drug therapy; Z91.048 Other nonmedicinal substance allergy status; Z88.5 Allergy status to narcotic agent; Z91.018 Allergy to other foods; Z98.890 Other specified postprocedural states; Z82.49 Family history of ischemic heart disease and other diseases of the circulatory system
CPT/HCPCS: 82365; 74420; 74018; 52356; C2625; C1769; J2250; J1100; J2710; J0690; J2405; J2001; J3010; J1885; J0330; J2704

== ENCOUNTER → 2021-12-22 | Outpatient (CLI) | payer OTHER ==
--- NOTE | 2021-12-22 12:56 | CT ---
EXAMINATION TYPE: CT urogram wo/w con DATE OF EXAM: 12/22/2021 INDICATION: Gross hematuria CT DLP: 3137 mGy.cm Automated Exposure Control for Dose Reduction was Utilized. TECHNIQUE AND CONTRAST: CT scan of the abdomen and pelvis is performed without and with IV Contrast, as per CT urogram protoc ol, patient injected with 100 mL of Isovue 370. 3-D reconstruction images were performed and reviewed . COMPARISON: CT urogram dated 08/25/2020 FINDINGS: 6 mm nonobstructing stone is seen in the right renal pelvis with 2 mm nonobstructing calculus at the mid pole of the right kidney. No other definite radiodense renal, ureteric or urinary bladder calculi . No hydroureter or hydronephrosis. Bilateral renal cysts without suspicious features measuring up to 16mm at the upper pole of the left kidney. Subtle soft tissue/urothelial thickening of the right panchito al pelvis likely secondary to the right renal pelvis stone. Underlying lesion at that location can't be excluded. Unremarkable kidneys otherwise with no definite renal lesion identified otherwise. No definite fillin g defect is seen within the renal collecting system or the opacified portions of the ureters. Persist ent nonopacification of the superior half of the left ureter, still no significant wall thickening id entified. Unremarkable urinary bladder, prostate and seminal vesicles. Unremarkable liver. The gallbladder is not distended, probably due to incomplete fasting. Unremarkabl e spleen, pancreas, adrenals and abdominal aorta. Unremarkable stomach, duodenum and small bowel. Sig nificant fecal loading of the colon suggestive of constipation. Normal appendix. Small fat-containing inguinal hernia. No suspicious lymphadenopathy or sizable ascites. Unremarkable lung bases. No aggre ssive bone lesion. IMPRESSION: 6 mm nonobstructing stone within the right renal pelvis with surrounding mild soft tissue/urothelial thickening, possibly reactive however underlying lesion cannot be excluded. Recommend correlation wit h urinalysis results including cytology. Another right renal nonobstructing calculus measuring 2 mm. No other definite radiodense urinary calc og. No hydroureter or hydronephrosis. No other definite urinary lesion identified. Incidental findin gs as detailed above.
== END | disposition home or self-care (01) ==
LOC: RADCTMAIN 10:49
PROVIDERS: ATTEND Urology
DX: N20.0 Calculus of kidney (principal); R31.0 Gross hematuria
CPT/HCPCS: 74178; 74400; Q9967

== ENCOUNTER 2021-12-24 07:12 | Day surgery (SDC) | payer OTHER ==
[2021-12-21 14:20] VITALS: BMI 32.8
[~2021-12-24 07:12] MED LIST changes: -DEXAMETHASONE SOD PHOSPHATE 4 MG/ML 1 ML VIAL IV ONE; -HYDROmorphone 0.5 MG/0.5 ML SYRINGE IVP PRN; -ONDANSETRON 4 MG/2 ML VIAL IVP ONE
[2021-12-24 07:57] VITALS: RESP 16; TEMP 97.3
[2021-12-24] MEDS ORDERED: LIDOCAINE 1% (10MG/ML) FOR IV START INTRADERMA ONE (07:57)
[2021-12-24] MEDS ORDERED: LIDOCAINE 1% INJ 10MG/ML (20 ML MDV) ONE (08:17)
[2021-12-24] MEDS ORDERED: PROPOFOL 10 MG/ML 20 ML VIAL IV ONE (08:17)
--- NOTE | 2021-12-24 08:28 | P.PCN ---
Date of Procedure: 12/24/21 Procedure(s) Performed: BRIEF HISTORY: Patient is a 36-year-old pleasant white male scheduled for an elective colonoscopy as a part of value should of intermittent rectal bleeding for the last 1 month duration. PROCEDURE PERFORMED: Flexible sigmoidoscopy PREOPERATIVE DIAGNOSIS: Intermittent rectal bleeding. IV sedation per Anesthesia. PROCEDURE: After informed consent was obtained, the patient, was brought into the endoscopy unit. IV sedation was administered by Anesthesia under continuous monitoring. Digital rectal examination was normal. Initially the Olympus CF-160 flexible video colonoscope was then inserted in the rectum, gradually advanced into the sigmoid colon, and the prep was extremely poor and hence the procedure was terminated. There was solid stool noted in the sigmoid colon and rectum. The visualized mucosa of the sigmoid colon and rectum appeared normal. Retroflexion was performed in the rectum and grade 2 internal hemorrhoids were seen. The patient tolerated the procedure well. IMPRESSION: Grade 2 internal hemorrhoids Solid stool in the rectum and sigmoid colon precluding adequate visualization and hence procedure was terminated. RECOMMENDATIONS: Findings of this examination were discussed with the patient as well as his family. He was advised advised to start on a high-fiber diet and take fiber supplements a regular basis and if he continues to have rectal bleeding recommend a colonoscopy with a two-day prep..
[2021-12-24 08:49] VITALS: BP 111/72; PULSE 53
== END 2021-12-24 09:04 | disposition home or self-care (01) ==
LOC: ORWHC2ENDO 07:12
PROVIDERS: ATTEND Internal Medicine Gastroenterology
DX: K64.8 Other hemorrhoids (principal)
CPT/HCPCS: 45330; J2001; J2704

== ENCOUNTER → 2022-02-08 | Outpatient (CLI) | payer OTHER ==
[2022-02-08 22:21] LABS: Appearance,Urine Cloudy (Clear); Bacteria,Urine None Seen /HPF (None Seen); Bilirubin,Urine Negative (Negative); Blood,Urine Large (Negative); Color,Urine Dark Yellow (Yellow); Ketones,Urine Trace mg/dL (Negative); Nitrite,Urine Negative (Negative); Specific Gravity,Urine 1.027 (1.001-1.030); Urobilinogen,Urine 0.2 (0.2,1.0)
[2022-02-08 23:38] LABS: Basophils % (A) 1.5 %; Eosinophils # (A) 0.24 X 10*3/uL (0.04-0.35); Eosinophils % (A) 3.7 %; HCT 42.4 % (39.6-50.0); HGB 13.8 g/dL (13.0-17.0); Immature Grans, Automated 0.3 %; Lymphocytes # (A) 1.56 X 10*3/uL (0.90-5.00); Lymphocytes % (A) 24.1 %; MCH 28.8 pg (27.0-32.0); MCHC 32.5 g/dL (32.0-37.0); MCV 88.3 fL (80.0-97.0); Mean Platelet Volume 10.6 fL (9.5-12.2); Monocytes # (A) 0.44 X 10*3/uL (0.20-1.00); Monocytes % (A) 6.8 %; NRBC Per 100 WBC 0 /100 WBCS (0.0-0.0); Neutrophils # (A) 4.12 X 10*3/uL (1.80-7.70); Neutrophils % (A) 63.6 %; Platelet Count 248 X 10*3/uL (140-440); RDW 12.5 % (11.5-14.5); WBC 6.48 X 10*3/uL (4.50-10.00)
[2022-02-08 23:51] LABS: African American GFR (CKD) 135.5 (60.0-200.0); BUN/Creat Ratio 24.8 Ratio (12.00-20.00); Blood Urea Nitrogen 18.4 mg/dL (9.0-27.0); Calcium 9.5 mg/dL (8.7-10.3); Carbon Dioxide 25.8 mmol/L (20.0-27.5); Non-African American GFR(CKD) 116.9 (60.0-200.0); Potassium 4.3 mmol/L (3.5-5.5)
== END | disposition home or self-care (01) ==
LOC: LABPAT 14:16
PROVIDERS: ATTEND Urology
DX: Z01.818 Encounter for other preprocedural examination (principal); N20.0 Calculus of kidney
CPT/HCPCS: 80048; 81001; 85025; 87086

== ENCOUNTER 2022-02-14 08:55 | Day surgery (SDC) | payer OTHER ==
[2022-02-11 10:07] VITALS: BMI 30.7
[~2022-02-14 08:55] MED LIST changes: +DEXAMETHASONE SOD PHOSPHATE 4 MG/ML 1 ML VIAL IV ONE; +HYDROmorphone 0.5 MG/0.5 ML SYRINGE IVP PRN; +ONDANSETRON 4 MG/2 ML VIAL IVP ONE
--- NOTE | 2022-02-14 09:35 | P.HPIHPCON ---
History of Present Illness Chief Complaint: right sided renal stone This is a 36 yo male with hx of 6 mm right sided renal pelvis stone. He is s ymptomatic from his stone. Option of ESWL versus ureteroscopy with holmium laser was discussed. Risk and benefit of each approach was discussed in detail. He agreed to proceed with right-sided ureteroscopy with holmium laser. Discussed the risk which includes but not limited to bleeding, infection, injury to the ureter. Discussed also risk from anesthesia. Discussed also the risk of persistent stone. He understood all the risk and agreed to proceed with right- sided ureteroscopy, with holmium laser lithotripsy, stone basketing and stent insertion Consent for Procedure: I have explained the operation/procedure to the patient, including the risks, benefits, side effects, alternative therapies (including not receiving the proposed treatment or service), the likelihood of the patient achieving his/her goals, and potential recuperation problems for the procedure/sedation/analgesia, as well as any blood products, if indicated. I also explained to the patient the risks, benefits and side effects of the alternatives, as well as the risks related to not receiving the proposed procedure, care, treatment, or services. Past Medical History Past Medical History: Hypertension, Memory Impairment, Rheumatoid Arthritis (RA), Seizure Disorder Additional Past Medical History / Comment(s): KIDNEY STONES, TUMOR RIGHT KIDNEY., HX OF ULCERS AT age 13.LAST SEIZURE 2 YEARS AGO (2019)., OLIGOARTICULAR ARTHRITIS DIAGNOSED AT 4 YRS OLD , RHEUMATOID ARTHRITIS SPINE. History of Any Multi-Drug Resistant Organisms: None Reported Past Surgical History: Orthopedic Surgery Additional Past Surgical History / Comment(s): left shoulder, right wrist, bladder scope, EGD Past Anesthesia/Blood Transfusion Reactions: Previous Problems w/ Anesthesia, Postoperative Nausea & Vomiting (PONV) Smoking Status: Current every day smoker - Past Family History Mother Family Medical History: Hypertension, Myocardial Infarction ([place]) Additional Family Medical History / Comment(s): MS Father History Unknown: Yes Medications and Allergies Home Medications Medication Instructions Recorded Confirmed Type Ibuprofen [Motrin] 600 mg PO BID 12/21/21 02/11/22 History Mirtazapine [Remeron] 15 mg PO HS 02/11/22 02/11/22 History Allergies Allergy/AdvReac Type Severity Reaction Status Date / Time adhesive tape Allergy Rash/Hives Verified 02/11/22 09:48 banana Allergy Dyspnea Verified 02/11/22 09:48 codeine Allergy Rash/Hives Verified 02/11/22 09:48 latex Allergy Rash/Hives Verified 02/11/22 10:14 propoxyphene Allergy Rash/Hives Verified 02/11/22 09:48 [From [facility]N 100] Surgical - Exam - General no distress, moderate pain - Eyes normal ocular movement - ENT normal nares, normal mucosa - Respiratory normal expansion, normal respiratory effort - Abdomen Abdomen: soft, non tender - Psychiatric oriented to time, oriented to person, oriented to place Assessment and Plan Assessment: OR for right-sided ureteroscopy, with holmium laser lithotripsy, stone basketing and stent insertion
--- NOTE | 2022-02-14 09:48 | XR ---
KUB HISTORY: Lithotripsy on the kidney stone Frontal KUB submitted on 2 images Calcific densities superimposed over the right kidney towards the upper pole measuring approximately 8 mm. Overlying bowel gas may obscure detail. Suspect calcifications again noted overlying the left k idney towards the mid to lower pole. Retained fecal debris is present. Calcification the right hemipe lvis is again noted. IMPRESSION: Bilateral nephrolithiasis.
[2022-02-14] MEDS ORDERED: PROPOFOL 10 MG/ML 20 ML VIAL IV ONE (10:51)
[2022-02-14] MEDS ORDERED: SUCCINYLCHOLINE CHLORIDE 100 MG/5 ML SYR IV ONE (10:51)
[2022-02-14] MEDS ORDERED: LIDOCAINE 1% INJ 10MG/ML (20 ML MDV) ONE (10:51)
[2022-02-14] MEDS ORDERED: MIDAZOLAM 2 MG/2 ML VIAL ONE (10:51)
[2022-02-14] MEDS ORDERED: fentaNYL (PF) 50 MCG/ML 2 ML AMP ONE (10:51)
[2022-02-14] MEDS ORDERED: IOPAMIDOL-370 50ML BTL MISCELLANE ONE (11:23)
--- NOTE | 2022-02-14 12:19 | P.OP ---
Date of Procedure: 02/14/22 Preoperative Diagnosis: Right renal stone Postoperative Diagnosis: Same Procedure(s) Performed: Cystoscopy, right ureteroscopy, ureteral balloon dilation, holmium laser lithotripsy and stent insertion Implants: 6-Irish by 26 cm stent in the right ureter Anesthesia: ANDREW Surgeon: Tony Russo Estimated Blood Loss (ml): 10 Pathology: none sent Condition: stable Disposition: PACU Indications for Procedure: This is a 36 yo male with hx of 6 mm right sided renal pelvis stone. He is symptomatic from his stone. Option of ESWL versus ureteroscopy with holmium laser was discussed. Risk and benefit of each approach was discussed in detail. He agreed to proceed with right-sided ureteroscopy with holmium laser. Discussed the risk which includes but not limited to bleeding, infection, injury to the ureter. Discussed also risk from anesthesia. Discussed also the risk of persistent stone. He understood all the risk and agreed to proceed with right- sided ureteroscopy, with holmium laser lithotripsy, stone basketing and stent insertion Operative Findings: Right-sided renal stones Description of Procedure: Patient was brought to the operating room, general anesthesia was induced. He was prepped and draped in sterile fashion and placed in a dorsal lithotomy position. Cystoscopy fitted with a 22-Irish sheath was inserted per urethra, cystoscopy was performed which showed no abnormality within the bladder. attention was then carried to the right ureteral orifice which was intubated with a sensor wire. Next I attempted to pass a 11-13 Fr access sheath but resistance was met at the distal ureter. At this time a ureteral balloon dilator was passed over the wire and the narrowed area in the distal ureter was dilated. Next I readvanced the cystoscope through the access sheath and was able to navigate the scope past the narrowing, but another area of narrowing in the proximal ureter was encountered, at this time the wire was readvanced through the ureteroscope and the ureteroscope was withdrawn with the wire in place. Next a ureteral balloon dilator was passed over the wire under fluoroscopy the narrowing of the proximal ureter was dilated. Next in the ureteroscope was readvanced through the access sheath and passed the narrowing of note ureter was fairly torturous and had multiple narrowed area along the proximal ureter and I needed to use a wire to pass the ureteroscope into the renal pelvis. Next the ureteroscope was advanced into the renal pelvis and the stone was encountered. Using the holmium laser the stone was dusted, but of note I was not able to advance the scope into the lower pole given the angle of the patient's lower pole, on fluoroscopy there there was no radiopaque fragments. Given the tortuosity of the proximal ureter no fragments were rem vasquez, but all fragments were smaller than the diameter of the wire. Pullback ureteroscopy was performed showed no injury to the ureter or any ureteral fragments.
[2022-02-14 12:36] VITALS: TEMP 97.2
[2022-02-14] MEDS ORDERED: KETOROLAC 15 MG/ML 1 ML VIAL IVP ONE (12:45)
[2022-02-14] MEDS ORDERED: LACTATED RINGERS 1,000 ML IV ONE (13:06)
[2022-02-14 13:21] VITALS: RESP 16
--- NOTE | 2022-02-14 13:23 | FL ---
Fluoroscopy HISTORY: Right renal calculus 8 seconds fluoroscopy time supplied to the referring clinician. 10 intraoperative C-arm images docum ent the procedure. See dictated report from urology.
[2022-02-14 13:41] VITALS: BP 117/72; PULSE 60
== END 2022-02-14 13:55 | disposition home or self-care (01) ==
LOC: OR 08:55
PROVIDERS: ATTEND Urology
DX: N20.0 Calculus of kidney (principal); Z87.442 Personal history of urinary calculi
CPT/HCPCS: 52356; 74420; 74018; C2625; C1769; J2250; J1100; J0690; J2405; J2001; J3010; J1885; J0330; J2704; J1170; Q9967

== ENCOUNTER 2022-05-17 12:58 | Emergency (ER) | payer OTHER ==
[2022-05-17 13:06] VITALS: BP 157/91; PULSE 94; RESP 18; TEMP 98.1
[2022-05-17] MEDS ORDERED: DIPH,PERTUS(ACELL)TETVAC-LF 0.5 ML VIAL IM ONE (13:16)
[2022-05-17] MEDS ORDERED: BACITRACIN ZINC 500 UNIT/GM OINT 28.4 GM TUBE TOPICAL ONE (13:18)
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
== END 2022-05-17 13:34 | disposition home or self-care (01) ==
LOC: EC 12:58
DX: T22.331A Burn of third degree of right upper arm, initial encounter (principal); I10 Essential (primary) hypertension; F17.200 Nicotine dependence, unspecified, uncomplicated; Z82.49 Family history of ischemic heart disease and other diseases of the circulatory system; Z23 Encounter for immunization; Z91.040 Latex allergy status; Z91.048 Other nonmedicinal substance allergy status; Z88.8 Allergy status to other drugs, medicaments and biological substances
CPT/HCPCS: 90471; 90715; 99283

== ENCOUNTER → 2023-02-06 | Outpatient (CLI) | payer OTHER ==
--- NOTE | 2023-02-06 11:27 | XR ---
EXAMINATION TYPE: XR hand complete bilateral DATE OF EXAM: 02/06/2023 COMPARISON: NONE HISTORY: pain TECHNIQUE: Three views are submitted. FINDINGS: The osseous structures are intact. The joint spaces are preserved and there is no acute fracture or dislocation. IMPRESSION: 1. No definite osseous abnormality.
== END | disposition home or self-care (01) ==
LOC: RADXRMAIN 08:51
PROVIDERS: ATTEND Internal Medicine
DX: M79.641 Pain in right hand (principal); M79.642 Pain in left hand

== ENCOUNTER → 2023-10-03 | Outpatient (CLI) | payer OTHER | END | disposition home or self-care (01) | LOC: RADMRIMAIN 21:00 | PROVIDERS: ATTEND Family Medicine | DX: Z53.9 Procedure and treatment not carried out, unspecified reason (principal) ==